=== PATIENT | female | born 1950 | race Caucasian/White ===

== ENCOUNTER → 2016-09-19 | Outpatient (CLI) | payer MEDICARE, MEDICAID | LOC: RAD 09:18 | PROVIDERS: ATTEND Physician Assistant | DX: R10.10 Upper abdominal pain, unspecified (principal) | CPT/HCPCS: 74177 ==

== ENCOUNTER 2016-11-11 10:53 | Day surgery (SDC) | payer MEDICARE, MEDICAID ==
[~2016-11-11 10:53] MED LIST: PROPOFOL INJ 200 MG/20 ML VIAL IV ONE
--- NOTE | 2016-11-11 13:29 | Operative Report ---
Operative Report DATE OF SURGERY: 11/11/16 Operative Report: The risks, benefits and alternatives of the procedure including risks of bleeding, perforation requiring surgery are explained to the patient detail and informed consent was obtained. The patient was taken back to the endoscopy suite and placed in the left, lateral decubital position. Timeout was called. Propofol medications administered. A rectal examination was done which did not reveal any masses, tears or fissures. An Olympus videoscope was inserted into the patient's rectum. The scope was then gradually advanced all the way to the cecum. The cecum was identified by the usual anatomical landmarks including the ileocecal valve as well as the appendiceal office. Photodocumentation was obtained. The scope was then sequentially pulled back via the rest segments of the colon including the ascending colon, hepatic flexure, transverse colon, splenic flexure, descending colon and finding to the rectosigmoid portions of the colon. Retroflexion maneuver was performed. The risks benefits and alternatives of the procedure explained to the patient in detail and informed consent is obtained. A GIF Olympus video scope was inserted into the patient's mouth and hypopharynx the esophagus is identified intubated and insufflated, the scope was then advanced through the esophagus stomach and duodenum, retroflexion maneuver is done, the esophagus stomach and first and second portions of the duodenum examined PREOPERATIVE DIAGNOSIS: Colorectal cancer screening. Epigastric pain rule out peptic ulcer disease POSTOPERATIVE DIAGNOSIS: There is a cecal polyp that was removed via snare polypectomy. An Endo Clip was placed to reduce the risk of post polypectomy bleeding. There is a hepatic flexure polyp that was removed via snare polypectomy and retrieved. There is a sigmoid polyp on a large stalk, high risk of removal with snare polypectomy. Status post tattoo with [place] ink along with biopsy. Will need surgical referral. Rectal polyp 2 removed via snare polypectomy and retrieved. Diverticulosis moderate in the sigmoid. Internal and external hemorrhoids. Gastritis, duodenitis, esophagitis status post biopsy rule out Helicobacter pylori OPERATION: Colonoscopy with snare polypectomy. Colonoscopy with biopsy. Colonoscopy with submucosal injection of [place] ink. EGD with biopsy SURGEON: IRVIN DIAMOND ANESTHESIA: LMAC TISSUE REMOVED OR ALTERED: The polyp in the cecum was not retrieved, all of the polyps are retrieved. Biopsies of the stomach to rule out for Helicobacter pylori COMPLICATIONS: None. ESTIMATED BLOOD LOSS: None. INTRAOPERATIVE FINDINGS: As described above. PROCEDURE: Patient tolerated procedure well. No immediate postprocedure complications are noted. Patient discharged in good condition. Discharge date 11/11/2016. Discharge diet: Regular. Discharge activity: Regular. Prolonged procedure time exceeding 1 hour. We will wait on biopsies. Surveillance in 1 year. 2-3 week follow-up to discuss findings. Patient is instructed to call the office or proceed to the emergency room should there be any further problems or questions. We will need surgical referral for limited sigmoid resection given size of the polyp and high risk of post polypectomy bleeding.
[2016-11-11] MEDS ORDERED: SIMETHICONE 80 MG TAB.CHEW ONE (13:36)
[2016-11-11 13:51] VITALS: BP 158/81
== END 2016-11-11 13:55 | disposition home or self-care (01) ==
LOC: END 10:53
PROVIDERS: ATTEND Internal Medicine Gastroenterology
PROC: 3E0H8GC Introduction of Other Therapeutic Substance into Lower GI, Via Natural or Artificial Opening Endoscopic (ICD-10-PCS; principal; 2016-11-11 14:00)
PROC: 0DB68ZX Excision of Stomach, Via Natural or Artificial Opening Endoscopic, Diagnostic (ICD-10-PCS; 2016-11-11 14:00)
PROC: 0DBN8ZX Excision of Sigmoid Colon, Via Natural or Artificial Opening Endoscopic, Diagnostic (ICD-10-PCS; 2016-11-11 14:00)
PROC: 0DBP8ZX Excision of Rectum, Via Natural or Artificial Opening Endoscopic, Diagnostic (ICD-10-PCS; 2016-11-11 14:00)
DX: D12.0 Benign neoplasm of cecum (principal); D12.7 Benign neoplasm of rectosigmoid junction; K63.5 Polyp of colon; K57.30 Diverticulosis of large intestine without perforation or abscess without bleeding; K64.8 Other hemorrhoids; K64.4 Residual hemorrhoidal skin tags; E78.4 Other hyperlipidemia; I10 Essential (primary) hypertension; E11.9 Type 2 diabetes mellitus without complications; Z79.1 Long term (current) use of non-steroidal anti-inflammatories (NSAID); Z79.899 Other long term (current) drug therapy; Z79.51 Long term (current) use of inhaled steroids
CPT/HCPCS: 43239; 45380; 45385; 45381; 82962; 88342 ×2; 88305 ×2; A9270; J2704; 740

== ENCOUNTER → 2017-12-12 | Outpatient (CLI) | payer MEDICARE, MEDICAID ==
--- NOTE | 2017-12-12 13:26 | RADIOLOGY REPORT (SQ) ---
EXAM DESCRIPTION: CHEST 2 VIEWS COMPLETED DATE/TIME: 12/12/2017 1:03 pm REASON FOR STUDY: SOB (R06.02) E11.9 TYPE 2 DIABETES MELLITUS WITHOUT COMPLICATIONS R60.0 LOCALIZE D EDEMA COMPARISON: None. NUMBER OF VIEWS: Two view. TECHNIQUE: Frontal and lateral radiographic views of the chest acquired. LIMITATIONS: None. FINDINGS: LUNGS AND PLEURA: No opacities, masses or pneumothorax. No pleural effusion. MEDIASTINUM AND HILAR STRUCTURES: No masses. No contour abnormalities. HEART AND VASCULAR STRUCTURES: Heart enlarged without failure. Aorta normal for age. BONES: No acute findings. HARDWARE: None in the chest. OTHER: No other significant finding. IMPRESSION: CARDIAC ENLARGEMENT WITHOUT FAILURE. TECHNICAL DOCUMENTATION: JOB ID: [id number] [employer]- All Rights Reserved Reading location - IP/workstation name: [email or web address]
--- NOTE | 2017-12-12 14:21 | RADIOLOGY REPORT (SQ) ---
EXAM DESCRIPTION: VENOUS BILATERAL LOWER COMPLETED DATE/TIME: 12/12/2017 1:59 pm REASON FOR STUDY: BLE EDEMA E11.9 TYPE 2 DIABETES MELLITUS WITHOUT COMPLICATIONS R60.0 LOCALIZED E PAMELA COMPARISON: None. TECHNIQUE: Dynamic and static bullock scale and color images acquired of both lower extremity venous sy stems. Selected spectral images acquired with additional compression and augmentation maneuvers. Imag es stored on PACS. LIMITATIONS: None. FINDINGS: RIGHT LEG COMMON FEMORAL AND FEMORAL: Normal phasicity, compression and augmentation. No visualized echogenic m aterial on bullock scale. No defects on color images. POPLITEAL: Normal compression and augmentation. No visualized echogenic material on bullock scale. No de fects on color images. CALF VESSELS: Normal compression and augmentation. No visualized echogenic material on bullock scale. No defects on color image. GSV AND SSV: Normal compression. No visualized echogenic material on bullock scale. No defects on color images. ANY DEEP VENOUS INSUFFICIENCY: Not evaluated. ANY EVIDENCE OF POPLITEAL CYST: No. OTHER: No other significant finding. LEFT LEG COMMON FEMORAL AND FEMORAL: Normal phasicity, compression and augmentation. No visualized echogenic m aterial on bullock scale. No defects on color images. POPLITEAL: Normal compression and augmentation. No visualized echogenic material on bullock scale. No de fects on color images. CALF VESSELS: Normal compression and augmentation. No visualized echogenic material on bullock scale. No defects on color images. GSV AND SSV: Normal compression. No visualized echogenic material on bullock scale. No defects on color images. ANY DEEP VENOUS INSUFFICIENCY: Not evaluated. ANY EVIDENCE POPLITEAL CYST: No. OTHER: No other significant finding. IMPRESSION: NO EVIDENCE DVT OR SVT IN EITHER LEG. TECHNICAL DOCUMENTATION: JOB ID: [id number] [employer]- All Rights Reserved Reading location - IP/workstation name: [email or web address]
== END ==
LOC: SP 12:52
PROVIDERS: ATTEND Physician Assistant
DX: R60.0 Localized edema (principal); R06.02 Shortness of breath; E11.9 Type 2 diabetes mellitus without complications; I51.7 Cardiomegaly
CPT/HCPCS: 71046; 93970

== ENCOUNTER 2018-01-16 09:06 | Day surgery (SDC) | payer MEDICARE, MEDICAID ==
[2018-01-16] MEDS ORDERED: ALBUTEROL SULFATE 0.083% NEB 2.5 MG/3 ML AMPUL NEB PRN (09:24)
[2018-01-16 10:34] LABS: ANION GAP 12 (5-19); BLOOD UREA NITROGEN 24 mg/dL (7-20); CALCIUM 9.5 mg/dL (8.4-10.2); CARBON DIOXIDE 23 mmol/L (22-30); CHLORIDE 111 mmol/L (98-107); GLUCOSE 88 mg/dL (75-110); POTASSIUM 3.7 mmol/L (3.6-5.0); SODIUM 145.7 mmol/L (137-145)
[2018-01-16] MEDS ORDERED: PROPOFOL INJ 200 MG/20 ML VIAL IV ONE (10:41)
[2018-01-16] MEDS ORDERED: MIDAZOLAM 2 MG/2 ML INJ ONE (10:41)
[2018-01-16] MEDS ORDERED: PROMETHAZINE HCL INJ 25 MG/1 ML VIAL IV PRN ×2 (11:05)
[2018-01-16] MEDS ORDERED: MEPERIDINE HCL/PF INJ 25 MG/1 ML DISP.SYRIN IV PRN (11:05)
[2018-01-16] MEDS ORDERED: FENTANYL CITRATE INJ/PF 100 MCG/2 ML AMPUL IV PRN ×3 (11:05)
[2018-01-16] MEDS ORDERED: DIPHENHYDRAMINE HCL 50 MG/ML VIAL IV PRN (11:05)
--- NOTE | 2018-01-16 12:18 | Operative Report ---
Operative Report DATE OF SURGERY: 01/16/18 Operative Report: The risks, benefits and alternatives of the procedure including risk of bleeding , perforation requiring surgery are explained to the patient in detail and informed consent was obtained. Patient is brought back to the operating room and placed in the left, lateral decubital position. Timeout was called. Propofol medication is administered. A rectal examination is done which did not reveal any masses, tears or fissures. The Olympus videoscope was inserted into the patient's rectum. The scope was then carefully advanced all the way to the cecum. There was some difficulty going around the sigmoid loop. The cecum was identified by the usual anatomical landmarks including the ileocecal valve as well as appendiceal office. Photodocumentation is obtained. The scope was then sequentially pulled back via the rest segments of the colon including the ascending colon, hepatic flexure, transverse colon, splenic flexure, descending colon and finding to the rectosigmoid portions of the colon. Retroflexion maneuvers performed. The risks benefits and alternatives of the procedure explained to the patient in detail and informed consent is obtained.A GIF Olympus video scope was inserted into the patient's mouth and hypopharynx ,the esophagus is identified intubated and insufflated, the scope was then advanced through the esophagus stomach and duodenum ,retroflexion maneuver is done, the esophagus stomach and first and second portions of the duodenum examined PREOPERATIVE DIAGNOSIS: Anemia, weight loss. Personal history of polyp POSTOPERATIVE DIAGNOSIS: Gastritis status post biopsy rule out Helicobacter pylori. Sigmoid diverticulosis. Large base of a sigmoid polyp status post tattooing with 1 cc of [place] ink. 2 other small pedunculated polyps removed via snare polypectomy and retrieved. Internal hemorrhoids OPERATION: Colonoscopy with snare polypectomy. Colonoscopy with submucosal injection. EGD with biopsy SURGEON: IRVIN DIAMOND ANESTHESIA: LMAC TISSUE REMOVED OR ALTERED: As noted above. COMPLICATIONS: None. ESTIMATED BLOOD LOSS: None. INTRAOPERATIVE FINDINGS: As noted above. PROCEDURE: Patient tolerated the procedure well. No immediate postprocedure complications are noted. Patient discharged in good condition. Discharge date 01/16/2018. Discharge diet: Regular. Discharge activity: Regular. 2-3 week follow-up to discuss findings. Patient is instructed call the office or proceed to the emergency room should there be any further problems or questions. We will referred to surgery service for potential removal Surveillance colonoscopy 2-3 years after that
[2018-01-16] MEDS ORDERED: ACETAMINOPHEN 325 MG TABLET PO PRN (12:30)
[2018-01-16] MEDS ORDERED: DEXTROSE 5%-1/2 NORMAL SALINE 1,000 ML IV PRN (12:30)
[2018-01-16] MEDS ORDERED: SIMETHICONE 80 MG TAB.CHEW PO PRN (12:30)
[2018-01-16] MEDS ORDERED: PROMETHAZINE HCL INJ 25 MG/1 ML VIAL INJ PRN (12:30)
[2018-01-16 12:58] VITALS: BP 166/76
--- NOTE | 2018-01-16 12:59 | EKG REPORT ---
SEVERITY:- BORDERLINE ECG - SINUS RHYTHM PROBABLE LEFT ATRIAL ABNORMALITY BORDERLINE T ABNORMALITIES, ANT-LAT LEADS : Confirmed by: Norberto Mathur MD 16-Jan-2018 12:58:50
== END 2018-01-16 12:55 | disposition home or self-care (01) ==
LOC: OROUT 09:06
PROVIDERS: ATTEND Internal Medicine Gastroenterology
DX: K29.50 Unspecified chronic gastritis without bleeding (principal); D12.6 Benign neoplasm of colon, unspecified; D12.5 Benign neoplasm of sigmoid colon; K57.30 Diverticulosis of large intestine without perforation or abscess without bleeding; K64.8 Other hemorrhoids; D64.9 Anemia, unspecified; M19.90 Unspecified osteoarthritis, unspecified site; E11.9 Type 2 diabetes mellitus without complications; I10 Essential (primary) hypertension; E78.5 Hyperlipidemia, unspecified; F17.210 Nicotine dependence, cigarettes, uncomplicated; E78.1 Pure hyperglyceridemia; J41.1 Mucopurulent chronic bronchitis; Z86.73 Personal history of transient ischemic attack (TIA), and cerebral infarction without residual deficits; Z79.51 Long term (current) use of inhaled steroids; Z79.899 Other long term (current) drug therapy; Z79.84 Long term (current) use of oral hypoglycemic drugs; Z79.1 Long term (current) use of non-steroidal anti-inflammatories (NSAID)
CPT/HCPCS: 43239; 45385; 45381; 36415; 82962; 80048; 88342 ×2; 88305 ×2; 93005; 93010; J2250; J2704; A9270; 813

== ENCOUNTER → 2018-03-26 | Outpatient (CLI) | payer MEDICARE, MEDICAID ==
--- NOTE | 2018-03-27 10:37 | WOMENS IMAGING REPORT ---
EXAM DESCRIPTION: 3D SCREENING MAMMO BILAT COMPLETED DATE/TIME: 03/26/2018 12:25 pm REASON FOR STUDY: BILATERAL SCREENING MAMMO 3D /Z12.31 Z12.31 ENCNTR SCREEN MAMMOGRAM FOR MALIGNANT NEOPLASM OF BAM COMPARISON: [id number] TECHNIQUE: Standard craniocaudal and mediolateral oblique views of each breast recorded using digita l acquisition and breast tomosynthesis. LIMITATIONS: None. FINDINGS: No masses, calcifications or architectural distortion. No areas of suspicion. Read with the assistance of CAD. .[facility] - R2 Cenova Version 1.3 .[facility] Imaging - R2 Cenova Version 1.3 .[facility] - R2 Cenova Version 2.4 .[facility] [place] - R2 Cenova Version 2.4 .[facility] - R2 Opening Machine Cleaner Version 9.2 IMPRESSION: NORMAL MAMMOGRAM. BIRADS 1. BREAST DENSITY: b. There are scattered areas of fibroglandular density. BIRAD: 1 NEGATIVE RECOMMENDATION: ROUTINE SCREENING COMMENT: The patient has been notified of the results by letter per SA requirements. Additional no tification policies are in place for contacting patient with suspicious or incomplete findings. Quality ID #225: The [employer] recommends an annual screening mammogram for women aged 40 years or over. This facility utilizes a reminder system to ensure that all patients receive reminder letters, and/or direct phone calls for appointments. This includes reminders for routine scr eening mammograms, diagnostic mammograms, or other Breast Imaging Interventions when appropriate. Th is patient will be placed in the appropriate reminder system. The [employer] [employer] (ACR) has developed recommendations for screening MRI of the breast s in certain patient populations, to be used in conjunction with mammography. Breast MRI surveillanc e may be appropriate for women with more than 20% lifetime risk of developing breast cancer as deter mined by genetic testing, significant family history of the disease, or history of mantle radiation f or Hodgkins Disease. ACR Practice Guidelines 2008. DBT Technology DBT is a type of tomographic mammography. With conventional mammography, overlapping breast tissue ma y make lesions difficult to detect, even with good compression. DBT uses an x-ray tube that rotates a round the breast, taking images at different angles. These images are then combined to create thin sl ices of the breast that the radiologist can view as a 3D reconstruction. The [employer] unit can perform full-field digital mammograms (2D imaging); or DBT (3D imaging); or both, in a combination mode that quickly performs both the mammogram and the tomosynthesis scan while the breast is still compressed. PQRS 6045F: Fluoroscopic imaging is not utilized for breast tomosynthesis. TECHNICAL DOCUMENTATION: FINDING NUMBER: (1) ASSESSMENT: (1) JOB ID: [id number] [employer]- All Rights Reserved Reading location - IP/workstation name: [email or web address] [email or web address]
== END ==
LOC: WI 11:45
PROVIDERS: ATTEND Physician Assistant
DX: Z12.31 Encounter for screening mammogram for malignant neoplasm of breast (principal)
CPT/HCPCS: 77063; 77067

== ENCOUNTER → 2018-04-14 | Outpatient (CLI) | payer MEDICARE, MEDICAID ==
--- NOTE | 2018-04-14 11:57 | RADIOLOGY REPORT (SQ) ---
EXAM DESCRIPTION: CT CHEST WITHOUT COMPLETED DATE/TIME: 04/14/2018 11:20 am REASON FOR STUDY: PULMONARY NODULE (R91.1) R91.1 SOLITARY PULMONARY NODULE COMPARISON: Chest x-ray dated 12/12/2017 TECHNIQUE: CT scan performed of the chest without intravenous contrast. Images reviewed with lung, soft tissue and bone windows. Reconstructed coronal and sagittal MPR images reviewed. All images st ored on PACS. All CT scanners at this facility use dose modulation, iterative reconstruction, and/or weight based d osing when appropriate to reduce radiation dose to as low as reasonably achievable (ALARA). [facility]: Dose Right [facility]: CareDose [facility]: Dose Right [facility]: Teradose 4D [facility]: CE Interactive RADIATION DOSE: CT Rad equipment meets quality standard of care and radiation dose reduction techniq ues were employed. CTDIvol: 3.4 mGy. DLP: 125 mGy-cm. mGy. LIMITATIONS: No technical limitations. FINDINGS: LUNGS AND PLEURA: There are mild bilateral emphysematous changes with small subpleural ble bs. No consolidation or effusions. No suspicious pulmonary nodules. Minimal scarring in the left b ase. HILAR AND MEDIASTINAL STRUCTURES: No identified masses or abnormal nodes. No obvious aneurysm. HEART AND VASCULAR STRUCTURES: No aneurysm. No pericardial effusion. UPPER ABDOMEN: No significant findings. Limited exam. THYROID AND OTHER SOFT TISSUES: No masses. No adenopathy. BONES: No significant finding. HARDWARE: None in the chest. OTHER: No other significant findings. IMPRESSION: Mild emphysematous changes. No acute findings in the chest. Specifically no pulmonary nodules are identified. TECHNICAL DOCUMENTATION: JOB ID: [id number] Quality ID # [id number]: Final reports with documentation of one or more dose reduction techniques (e.g., Au tomated exposure control, adjustment of the mA and/or kV according to patient size, use of iterative reconstruction technique) 2010 [employer]- All Rights Reserved Reading location - IP/workstation name: [email or web address]
== END ==
LOC: RAD 10:17
PROVIDERS: ATTEND Internal Medicine Pulmonary Disease
DX: R91.1 Solitary pulmonary nodule (principal)
CPT/HCPCS: 71250

== ENCOUNTER → 2018-07-30 | Outpatient (CLI) | payer MEDICARE, MEDICAID ==
--- NOTE | 2018-07-30 10:45 | RADIOLOGY REPORT (SQ) ---
EXAM DESCRIPTION: CHEST 2 VIEWS COMPLETED DATE/TIME: 07/30/2018 10:34 am REASON FOR STUDY: DYSPNEA ON EXERTION COMPARISON: Check CT dated 04/14/2018. Chest x-ray dated 12/12/2017. EXAM PARAMETERS: NUMBER OF VIEWS: two views TECHNIQUE: Digital Frontal and Lateral radiographic views of the chest acquired. RADIATION DOSE: NA LIMITATIONS: none FINDINGS: LUNGS AND PLEURA: There are new bilateral pleural effusions, right greater than left. Pat elias airspace disease in the lower lobes. No pneumothorax. MEDIASTINUM AND HILAR STRUCTURES: No masses or contour abnormalities. HEART AND VASCULAR STRUCTURES: Borderline cardiomegaly. Mild vascular prominence. BONES: No acute findings. Old right rib fractures. HARDWARE: Clips in the upper abdomen. OTHER: No other significant finding. IMPRESSION: INTERVAL DEVELOPMENT OF BILATERAL PLEURAL EFFUSIONS, RIGHT GREATER THAN LEFT, WITH PATCH Y BASILAR DENSITIES PROBABLY DUE TO ATELECTASIS. BORDERLINE CARDIOMEGALY WITH MILD VASCULAR PROMINEN CE. TECHNICAL DOCUMENTATION: JOB ID: [id number] [employer]- All Rights Reserved Reading location - IP/workstation name: [email or web address]
== END ==
LOC: RAD 10:16
PROVIDERS: ATTEND Physician Assistant
DX: R06.09 Other forms of dyspnea (principal)
CPT/HCPCS: 71046

== ENCOUNTER → 2019-09-15 | Outpatient (CLI) | payer MEDICARE, MEDICAID ==
--- NOTE | 2019-09-15 10:55 | RADIOLOGY REPORT (SQ) ---
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 TECHNIQUE: Post IV contrasted scanning from skull base through lung apices with review of bone, soft tissue and lung windows. Reconstructed coronal and sagittal MPR images reviewed. All images stored on PACS. All CT scanners at this facility use dose modulation, iterative reconstruction, and/or weight based d osing when appropriate to reduce radiation dose to as low as reasonably achievable (ALARA). [facility]: Dose Right [facility]: CareDose [facility]: Dose Right [facility]: Teradose 4D [facility]: MooBella CONTRAST TYPE AND DOSE: contrast/concentration: Isovue 350.00 mg/ml; Total Contrast Delivered: 150.0 ml; Total Saline Delivered: 110.0 ml RENAL FUNCTION: Creatinine 1.4 RADIATION DOSE: . LIMITATIONS: None. FINDINGS: SKULL BASE: Intact. MAJOR SALIVARY GLANDS: No solid or cystic masses. No inflammatory changes. LYMPHADENOPATHY: No pathologically enlarged lymph nodes. MUCOSAL MASSES OR ASYMMETRY: No mucosal masses or asymmetry. LARYNX/CORDS: No abnormal findings. VASCULAR STRUCTURES: Thrombus in the SVC and right internal jugular vein. Small amount of thrombus i n the left subclavian vein. LUNG APICES: Approximately 2.8 x 3.9 cm necrotic level 4R pretracheal node. BONES: Lytic lesion has eroded most of the C3 dorsal spinous process. THYROID: Normal size. No masses. PARANASAL SINUSES: Small amount of fluid in the sphenoid sinuses. OTHER: No other significant finding. IMPRESSION: 1. 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 2. Bone metastasis C3. TECHNICAL DOCUMENTATION: JOB ID: [id number] Quality ID # 436: Final reports with documentation of one or more dose reduction techniques (e.g., Au tomated exposure control, adjustment of the mA and/or kV according to patient size, use of iterative reconstruction technique) 2010 [employer]- All Rights Reserved Reading location - IP/workstation name: [email or web address]-
== END ==
LOC: RAD 09:09
PROVIDERS: ATTEND Physician Assistant
DX: I87.1 Compression of vein (principal); C79.51 Secondary malignant neoplasm of bone
CPT/HCPCS: 70491; 82565

== ENCOUNTER → 2019-09-17 | Outpatient (CLI) | payer MEDICARE, MEDICAID ==
--- NOTE | 2019-09-17 11:29 | RADIOLOGY REPORT (SQ) ---
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 Images reviewed with lung, soft tissue and bone windows. Reconstructed coronal and sagittal MPR and MIP images reviewed. All images stored on PACS. All CT scanners at this facility use dose modulation, iterative reconstruction, and/or weight based d osing when appropriate to reduce radiation dose to as low as reasonably achievable (ALARA). [facility]: Dose Right [facility]: CareDose [facility]: Dose Right [facility]: Teradose 4D [facility]: Singularu CONTRAST TYPE AND DOSE: contrast/concentration: Isovue 350.00 mg/ml; Total Contrast Delivered: 80.0 ml; Total Saline Delivered: 43.0 ml RENAL FUNCTION: Creatinine 1.4 RADIATION DOSE: CT Rad equipment meets quality standard of care and radiation dose reduction techniq ues were employed. CTDIvol: 5.3 mGy. DLP: 196 mGy-cm. . LIMITATIONS: None. FINDINGS: LUNGS AND PLEURA: Right upper lobe 9 mm nodule (series 4, image 38), stable compared to CT dated 09/15/2019 but new since 04/14/2018. Minimal additional ill-defined centrilobular nodular opac ities within the right middle lobe. Upper lobe predominant paraseptal emphysema. No additional airs pace disease. No pleural effusion or pneumothorax. HILAR AND MEDIASTINAL STRUCTURES: Grossly stable extensive right suprahilar and mediastinal irregular soft tissue compared to recent CT neck. For reference there is abnormal right paratracheal soft tis brad measuring approximately 4.1 x 2.9 cm (series 2, image 21). There is associated non opacification of the SVC with prominent opacified chest wall collaterals compatible with SVC occlusion. Known SVC , innominate and right internal jugular clot better delineated on prior neck CT. There is mild mass effect and compression of the right main pulmonary artery. Additional prevascular adenopathy and subc arinal soft tissue, likely adenopathy. HEART AND VASCULAR STRUCTURES: Small pericardial effusion with three-vessel coronary atherosclerosis. Normal heart size. Non opacification of the SVC as above. Questionable small amount of subsegment al pulmonary embolism within the right lower lobe branches (series 2, image 36) HARDWARE: None in the chest. UPPER ABDOMEN: No acute findings. Prominent anterior abdominal wall collaterals compatible with SVC occlusion. Partially evaluated hypodense right renal lesion, possibly cyst but incompletely characte rize. THYROID AND OTHER SOFT TISSUES: Unremarkable thyroid. Enlarged irregular appearing right axillary ly mph node measuring 15 mm in short axis (series 2, image 17). BONES: No acute bony abnormality. Node discrete lytic or blastic osseous lesions. Subacute to chron ic multiple posterolateral right-sided rib fractures. OTHER: No other significant finding. IMPRESSION: 1. 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 There is associated occluded SVC with upper extremity drainage via multiple chest wall collaterals. Known SVC, innominate and right internal jugular clot better delineated on prior neck CT. Question able small amount of subsegmental pulmonary emboli within the right lower lobe branches although exam not optimized for evaluation of pulmonary arteries. 2. Right upper lobe 9 mm pulmonary nodules stable compared to recent neck CT but new since 8. Enlarged irregular right axillary lymph node measuring 15 mm in short axis. Finding suspicious f or additional malignancy. TECHNICAL DOCUMENTATION: JOB ID: [id number] Quality ID # 436: Final reports with documentation of one or more dose reduction techniques (e.g., Au tomated exposure control, adjustment of the mA and/or kV according to patient size, use of iterative reconstruction technique) 2010 [employer]- All Rights Reserved Reading location - IP/workstation name: [email or web address]
== END ==
LOC: RAD 10:05
PROVIDERS: ATTEND Physician Assistant
DX: J98.59 Other diseases of mediastinum, not elsewhere classified (principal); R59.0 Localized enlarged lymph nodes; R91.8 Other nonspecific abnormal finding of lung field
CPT/HCPCS: 71260

== ENCOUNTER 2019-09-27 07:07 | Day surgery (SDC) | payer MEDICARE, MEDICAID ==
[2019-09-27 08:15] LABS: HEMATOCRIT 31.2 % (36.0-47.0); HEMOGLOBIN 11.1 g/dL (12.0-15.5); MEAN CORPUSCULAR HGB CONC 35.5 g/dL (32.0-36.0); MEAN CORPUSCULAR VOLUME 87 fl (80-97); PLATELET COUNT 315 10^3/uL (150-450); RED BLOOD COUNT 3.58 10^6/uL (3.72-5.28); RED CELL DISTRIBUTION WIDTH 15.6 % (11.5-14.0); WHITE BLOOD COUNT 6.9 10^3/uL (4.0-10.5)
[2019-09-27 08:26] LABS: INTERNATIONAL RATION (INR) 1.18; PARTIAL THROMBOPLASTIN TIME 31.6 SEC (23.5-35.8); PROTHROMBIN TIME 15.1 SEC (11.4-15.4)
[2019-09-27 08:36] LABS: BLOOD UREA NITROGEN 26 mg/dL (7-20)
[2019-09-27 12:09] VITALS: BP 119/60
--- NOTE | 2019-09-27 16:51 | RADIOLOGY REPORT (SQ) ---
EXAM DESCRIPTION: U/S BIOPSY SUPERFIC LYMPH NODE IMAGES COMPLETED DATE/TIME: 09/27/2019 10:37 am REASON FOR STUDY: MALIGNANT NEOPLASM OF MIDDLE LOBE, BRONCHUS OR LUNG COMPARISON: CT of the chest with contrast from 09/17/2019. TECHNIQUE: The procedure, risks, benefits, and alternatives were discussed with the patient in the p reprocedural area, and all questions were answered. Informed consent was obtained verbally and in wri ting. The patient was then brought to the ultrasound suite, positioned supine on a gurney, and a time-out w as performed. After that, selected grayscale and color Doppler images of the right axilla were obtai aurelia. Based on review of the images an appropriate access site was selected on the skin to sample an e nlarged 14 x 19 mm lymph node. The area around the selected access site was then prepped and draped with 2% chlorhexidine utilizing standard sterile technique. After that, the access site was infiltrated with 1% lidocaine and a skin incision was made with a #11 blade. A 17 gauge coaxial needle was then advanced through the skin inc ision and into the enlarged lymph node utilizing sonographic guidance. After that, the inner stylet o f the coaxial needle was removed and 4 18 gauge core samples were obtained of the mass - the samples were collected and submitted to cytopathology in formalin. The coaxial needle was then removed and selected grayscale and color Doppler images of the mass were repeated and reviewed ; the images demonstrated no acute biopsy-related complication. The patient was then repositioned on the gurney and selected grayscale and color Doppler images of th e left axilla were obtained. Based on review of the images an appropriate access site was selected on the skin to sample the palpable heterogeneous necrotic mass. The area around the selected access sit e was then prepped and draped with 2% chlorhexidine utilizing standard sterile technique. After that , the access site was infiltrated with 1% lidocaine and a skin incision was made with a #11 blade. A 17 gauge coaxial needle was then advanced through the skin incision and into the necrotic mass utiliz ing sonographic guidance and 5 mL of thick bloody fluid was aspirate. After that, the inner stylet of the coaxial needle was removed and 4 18 gauge core samples were obtained of the necrotic mass - the samples were collected and submitted to cytopathology in formalin. The patient tolerated the procedure well with local anesthesia. At the end of the procedure the patient's condition was unchanged from the preprocedural baseline. Documentation of draa-ki-yfuj time the performing proceduralist spent monitoring the patient: 15 alli eduardo. LIMITATIONS: None. FINDINGS: Expansile echogenic thrombus within the right axillary vein and subcutaneous edema around the necrotic mass in the left axilla. IMPRESSION: 1. Successful ultrasound-guided biopsy of an enlarged right axillary lymph node as detai led above. 2. Successful ultrasound-guided biopsy and aspiration of the necrotic mass in the left axilla as det dayton above. TECHNICAL DOCUMENTATION: JOB ID: [id number] 2010 [employer]- All Rights Reserved Reading location - IP/workstation name: [email or web address]
== END 2019-09-27 11:35 | disposition home or self-care (01) ==
LOC: RAD 07:07
PROVIDERS: ATTEND Internal Medicine
DX: C77.3 Secondary and unspecified malignant neoplasm of axilla and upper limb lymph nodes (principal); C34.2 Malignant neoplasm of middle lobe, bronchus or lung; Z79.01 Long term (current) use of anticoagulants; E11.9 Type 2 diabetes mellitus without complications; E78.5 Hyperlipidemia, unspecified; I10 Essential (primary) hypertension; Z79.51 Long term (current) use of inhaled steroids; F17.210 Nicotine dependence, cigarettes, uncomplicated; Z79.899 Other long term (current) drug therapy
CPT/HCPCS: 36415; 38505; 82565; 84520; 85027; 85610; 85730; 87070; 87075; 87205; 88305; 88341; 88342

== ENCOUNTER → 2019-10-05 | Outpatient (CLI) | payer MEDICARE, MEDICAID ==
--- NOTE | 2019-10-06 11:06 | RADIOLOGY REPORT (SQ) ---
EXAM DESCRIPTION: PET CT SKULL/THIGH IMAGES COMPLETED DATE/TIME: 10/05/2019 12:55 pm REASON FOR STUDY: (C34.2)MALIGNANT NEOPLASM OF MIDDLE LOBE, BRONCHUS OR LUNG C34.2 MALIGNANT NEOPLA SM OF MIDDLE LOBE, BRONCHUS OR LUNG COMPARISON: CT chest dated 09/17/2019 RADIONUCLIDE AND DOSE: 10.06 mCi F18 FDG The route of agent administration: Intravenous FASTING BLOOD SUGAR: 95 mg/dl CONTRAST TYPE AND DOSE: No CT contrast given. TECHNIQUE: Blood glucose level was verified. Above dose of FDG was injected intravenously. 2-D seg mented attenuation correction images were obtained from the base of the skull to the midthighs. Nonc ontrast CT images were obtained for attenuation correction and fusion with emission images. CT image s were performed without oral or intravenous contrast and are not sensitive for parenchymal lesions. A series of overlapping emission PET images were obtained. Images reviewed and manipulated at [facility] work station by the radiologist. Images stored on PACS. LIMITATIONS: None. FINDINGS: HEAD AND NECK: There is increased metabolic activity in the cervical spine. There is a la rge soft tissue mass at the level of the C3 spinous process. There is bony destruction. SUV is joby ured at 7.3 consistent with neoplasm. CHEST: Multiple areas of abnormal activity in the mediastinum consistent with pathologic adenopathy. Most intense activity is on the right with there is a 3.2 cm soft tissue mass. Activity is decrease d centrally consistent with necrosis. SUV is greater than 6 consistent with neoplasm. There is a 3. 1 cm soft tissue mass in the left axilla a contains a small amount of air. SUV is greater than 4 con sistent with neoplasm. There is central decreased activity most likely secondary to necrosis. There are small abnormal nodes in the posterior mediastinum. ABDOMEN AND PELVIS: Abnormal uptake in the right adrenal gland. SUV is greater than 4 consistent wit h metastatic disease. PROXIMAL LOWER EXTREMITIES: No abnormal soft tissue uptake. BONES: Metastatic disease in the proximal right femur and left ilium. ADDITIONAL CT FINDINGS: There is diffuse subcutaneous edema. There is a small pericardial effusion. OTHER: There are small subcutaneous soft tissue nodules. Upper posterior right chest wall lesion is best demonstrated on slice [address] images. SUV is 2.9. 2nd soft tissue nodule is demonstrated on s lice 110. SUV is greater than 4.3. There is a small soft tissue nodule in the right upper arm as we ll. IMPRESSION: Abnormal uptake in the right-sided mediastinal mass with extensive metastatic disease as described. TECHNICAL DOCUMENTATION: JOB ID: [id number] 2010 [employer]- All Rights Reserved Reading location - IP/workstation name: [email or web address]
== END ==
LOC: RAD 10:27
PROVIDERS: ATTEND Internal Medicine
DX: C34.2 Malignant neoplasm of middle lobe, bronchus or lung (principal)
CPT/HCPCS: 78815; A9552

== ENCOUNTER 2019-10-12 07:03 | Observation (INO) | payer MEDICARE, MEDICAID ==
[~2019-10-12 07:03] MED LIST changes: +FENTANYL CITRATE INJ/PF 100 MCG/2 ML AMPUL ONE; +KETAMINE HCL INJ 500 MG/10 ML VIAL ONE; -MAGNESIUM SULFATE/D5W 1 GM/100 ML RTUPB IV SCH; +MIDAZOLAM 2 MG/2 ML INJ ONE; +ONDANSETRON HCL INJ/PF 4 MG/2 ML SDV ONE; +PROPOFOL INJ 200 MG/20 ML VIAL IV ONE
--- NOTE | 2019-10-12 09:04 | RADIOLOGY REPORT (SQ) ---
EXAM DESCRIPTION: MRI HEAD COMBO IMAGES COMPLETED DATE/TIME: 10/12/2019 8:39 am REASON FOR STUDY: LUNG CANCER (C34.2) C34.2 MALIGNANT NEOPLASM OF MIDDLE LOBE, BRONCHUS OR LUNG COMPARISON: PET-CT 10/05/2027 CT soft tissue neck 09/15/2019 TECHNIQUE: Multiplanar imaging includes noncontrasted T1, T2, FLAIR, diffusion with ADC map and post gadolinium contrast T1 sequences. Images stored on PACS. CONTRAST TYPE AND DOSE: 10 mL Dotarem. RENAL FUNCTION: Not indicated. ACR Type II contrast agent associated with few, if any, unconfounded cases of NSF LIMITATIONS: None. FINDINGS: ANATOMY: No developmental anomalies. Normal vascular flow voids. Pituitary fossa normal. CSF SPACES: Normal in size and contour. No hemorrhage. CEREBRUM: Minimal spotty bifrontal and biparietal chronic small vessel ischemic change in the hemisph zohaib white matter. No enhancing brain parenchymal masses worrisome for metastatic disease. No intracranial hemorrhage, mass effect, or midline shift. POSTERIOR FOSSA: No signal alteration. No hemorrhage. No edema, masses, or mass effect. Internal roxi tory canals, cerebellopontine angles, mastoids normal. No enhancing lesions. No abnormal enhancement post contrast. DIFFUSION IMAGING: Negative for acute or subacute infarction. ORBITS: No masses. Globes post cataract surgery PARANASAL SINUSES: No fluid levels. Mucosa normal. OTHER: 16 mm diameter left temporal calvarial metastatic lesion, best shown on axial image 108, sagit kaylin image 39, coronal image 28. IMPRESSION: 16 mm left temporal calvarial metastatic lesion. No brain parenchymal enhancing lesions worrisome for metastatic disease EVIDENCE OF ACUTE STROKE: NO. TECHNICAL DOCUMENTATION: JOB ID: [id number] [employer]- All Rights Reserved Reading location - IP/workstation name: [email or web address]
[2019-10-12] MEDS ORDERED: RINGERS SOLUTION,LACTATED 1,000 ML IV PRN (10:09)
[2019-10-12] MEDS ORDERED: CEFAZOLIN 1 GM/D5W RTU 1 GM/50 ML RTUPB IV PRN (10:11)
[2019-10-12] MEDS ORDERED: ACETAMINOPHEN 325 MG TABLET PO PRN ×2 (10:12→14:30)
[2019-10-12 11:31] LABS: ABSOLUTE BASOPHILS # (AUTO) 0.1 10^3/uL (0.0-0.2); ABSOLUTE EOSINOPHILS # (AUTO) 0.1 10^3/uL (0.0-0.6); ABSOLUTE MONOCYTES (AUTO) 0.3 10^3/uL (0.1-1.4); ABSOLUTE NEUT (AUTO) 5.8 10^3/uL (1.7-8.2); BASOPHILS % (AUTO) 1.3 % (0-2); EOSINOPHILS % (AUTO) 1.4 % (0-6); HEMOGLOBIN 10.7 g/dL (12.0-15.5); LYMPHOCYTES % (AUTO) 13.1 % (13-45); MEAN CORPUSCULAR HEMOGLOBIN 30.6 pg (27.0-33.4); MEAN CORPUSCULAR HGB CONC 34.4 g/dL (32.0-36.0); MEAN CORPUSCULAR VOLUME 89 fl (80-97); MONOCYTES % (AUTO) 4.6 % (3-13); PLATELET COUNT 326 10^3/uL (150-450); RED BLOOD COUNT 3.48 10^6/uL (3.72-5.28); RED CELL DISTRIBUTION WIDTH 15.7 % (11.5-14.0); SEGMENTED NEUTROPHILS % (AUTO) 79.6 % (42-78); TOTAL CELLS COUNTED % (AUTO) 100 %; WHITE BLOOD COUNT 7.3 10^3/uL (4.0-10.5)
[2019-10-12] MEDS ORDERED: LIDOCAINE 1%/EPINEPHRINE INJ 20 ML VIAL ONE (11:46)
[2019-10-12] MEDS ORDERED: CEFAZOLIN 1 GM/D5W RTU 1 GM/50 ML RTUPB IV ONE (11:50)
[2019-10-12] MEDS ORDERED: DIPHENHYDRAMINE HCL 50 MG/ML VIAL IV PRN (12:59)
[2019-10-12] MEDS ORDERED: MEPERIDINE HCL/PF INJ 25 MG/1 ML DISP.SYRIN IV PRN (12:59)
[2019-10-12] MEDS ORDERED: PROMETHAZINE HCL INJ 25 MG/1 ML VIAL IV PRN ×2 (12:59)
[2019-10-12] MEDS ORDERED: FENTANYL CITRATE INJ/PF 100 MCG/2 ML AMPUL IV PRN ×3 (12:59)
--- NOTE | 2019-10-12 13:17 | Discharge Summary ---
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 Take Tylenol or Motrin as needed pain Referrals: JOSE ALBERTO APPLE PA-C [Primary Care Provider] - Discharge Diet: As Tolerated Discharge Activity: Activity As Tolerated Report the Following to Your Physician Immediately: Shortness of Breath, Increase in Pain, Fever over 101 Degrees
[2019-10-12] MEDS ORDERED: ESMOLOL HCL INJ/PF 100 MG/10 ML SDV IV ONE (13:28)
--- NOTE | 2019-10-12 13:32 | Operative Report ---
Operative Report DATE OF SURGERY: 10/12/19 PREOPERATIVE DIAGNOSIS: 1. Metastatic small cell carcinoma of the lung. 2. C OPD. 3. Active smoker. 4. Venous thrombosis of the right internal jugular vein, and superior vena cava POSTOPERATIVE DIAGNOSIS: Same with occlusion of the superior vena cava OPERATION: 1. Ultrasound directed venous access left internal jugular vein. 2. Intraoperative venography with interpretation using fluoroscopy. 3. Placement of left subclavian single-chamber Ukvvdy-a-Pzva catheter SURGEON: MADELEINE GODOY ANESTHESIA: LMAC TISSUE REMOVED OR ALTERED: See below COMPLICATIONS: none ESTIMATED BLOOD LOSS: 40 cc INTRAOPERATIVE FINDINGS: See below PROCEDURE: Patient was seen in the preop holding area, then taken to the main operating where LMAC anesthesia was induced uneventfully. The neck was scanned by Dr. Godoy with a variable frequency linear resendiz sducer. Findings were significant for right IJ thrombus, near occlusive. Left IJ patent. I conferred with my colleague, Dr. Geovany Berry, who agreed with my intention to place a left IJ catheter. Of note patient is a CT scan of the neck and chest showed evidence of thrombus in the superior vena cava, with possible occlusion. Both sides of the neck and chest wall prepped and draped in sterile fashion. Surgical timeout was conducted. The left neck was anesthetized 1% plain lidocaine. A micro wire were threaded into the left internal jugular vein. Unfortunately the wire would not advance past the brachiocephalic vein. I placed a 5 Palestinian introducer sheath and dilator over the guidewire, then shot full-strength contrast venogram through the mini introducer. This revealed occlusion of the superior vena cava with auxiliary drainage placed through the Azygos system. In light of the patient's metastatic disease and need for port, despite the findings of deep venous thrombosis extending into the superior vena cava and occlusion, I felt that some venous access would potentially benefit the patient. Therefore we proceeded with port placement. A suitable site for placement of p ort was chosen the left chest wall. Skin was anesthetized 1% plain lidocaine. A 3 cm incision was made over the chest wall, with the immediate entry into multiple dilated veins consistent with chest wall varicosities likely due to the chronically obstructed superior vena cava. These veins were ligated with 3-0 Vicryl suture. A subclavian port pocket was developed with electrocautery blunt dissection. A 8 Palestinian catheter was then trimmed to a length of approximately 10 cm, tunnel between the 2 incisions that being the subclavian incision and the left IJ access site. The catheter was attached to the port with the plastic ring of the port tucked into the left subclavian pocket uneventfully. Under fluoroscopic guidance, we threaded a conventional 0.030 guidewire into the left IJ, and remove the micro-introducer sheath. I then threaded the 9 Palestinian dilator and introducer over the guidewire and removed the introducer and guidewire. I threaded the free catheter fragment into the strip away sheath, remove the strip away sheath, leaving the catheter with its tip in the innominate vein as intended. There was no kinking of the catheter at the neck. I aspirated and flushed the Ongezv-l-Fppt chamber with heparinized saline. I felt that we had established the access for this unfortunate patient with multiple complicated problems. Stool showed no evidence of hemorrhage in the neck was dry. Sponge and needle counts are correct. All wounds closed with 3-0 Vicryl benzoin and Steri-Strips. Patient was taken to the recovery room in stable condition. Recovering the patient underwent a chest x-ray which showed no evidence of pneumothorax, and catheter to be in the same position it was left in prior to operating room departure. Plan: 1. Discharge patient home from hospital per ambulatory protocol 2. I did speak with Dr. allison pederson, patient's oncologist, about the above findings and the need to start the patient on anticoagulation. 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
--- NOTE | 2019-10-12 13:41 | RADIOLOGY REPORT (SQ) ---
EXAM DESCRIPTION: CHEST SINGLE VIEW IMAGES COMPLETED DATE/TIME: 10/12/2019 1:27 pm REASON FOR STUDY: Status post left neck port placement COMPARISON: PA and lateral views of the chest from 07/30/2018. EXAM PARAMETERS: NUMBER OF VIEWS: One view. TECHNIQUE: An AP view of the chest was obtained. RADIATION DOSE: NA LIMITATIONS: None. FINDINGS: LUNGS AND PLEURA: No consolidation, pleural effusion or pneumothorax. MEDIASTINUM AND HILAR STRUCTURES: No mediastinal or hilar contour abnormality. HEART AND VASCULAR STRUCTURES: The cardiac silhouette is enlarged. BONES: Chronic fractures of the right 6th and 7th ribs. HARDWARE: Status post placement of a left IJ approach single-lumen port ; the tip of the catheter pro jects within the left brachiocephalic vein. OTHER: No other finding. IMPRESSION: Status post placement of a left IJ approach single-lumen port. The tip of the catheter projects within the left brachiocephalic vein. There is no postprocedural pneumothorax. TECHNICAL DOCUMENTATION: JOB ID: [id number] 2010 [employer]- All Rights Reserved Reading location - IP/workstation name: [email or web address]
[2019-10-12 14:30] LABS: ABSOLUTE BASOPHILS # (AUTO) 0.1 10^3/uL (0.0-0.2); ABSOLUTE EOSINOPHILS # (AUTO) 0.1 10^3/uL (0.0-0.6); ABSOLUTE LYMPHOCYTES (AUTO) 0.8 10^3/uL (0.5-4.7); ABSOLUTE MONOCYTES (AUTO) 0.4 10^3/uL (0.1-1.4); BASOPHILS % (AUTO) 0.8 % (0-2); EOSINOPHILS % (AUTO) 0.8 % (0-6); HEMATOCRIT 31.3 % (36.0-47.0); HEMOGLOBIN 10.7 g/dL (12.0-15.5); MEAN CORPUSCULAR HEMOGLOBIN 30.4 pg (27.0-33.4); MEAN CORPUSCULAR HGB CONC 34.3 g/dL (32.0-36.0); MEAN CORPUSCULAR VOLUME 89 fl (80-97); PLATELET COUNT 334 10^3/uL (150-450); RED BLOOD COUNT 3.52 10^6/uL (3.72-5.28); RED CELL DISTRIBUTION WIDTH 15.7 % (11.5-14.0); SEGMENTED NEUTROPHILS % (AUTO) 82.4 % (42-78); TOTAL CELLS COUNTED % (AUTO) 100 %; WHITE BLOOD COUNT 7.2 10^3/uL (4.0-10.5)
[2019-10-12] MEDS ORDERED: ONDANSETRON 4 MG TAB.RAPDIS PO PRN (14:30)
[2019-10-12] MEDS ORDERED: MAG HYDROX/AL HYDROX/SIMETH SUSP 30 ML UDCUP PO PRN (14:30)
[2019-10-12] MEDS ORDERED: ONDANSETRON HCL INJ/PF 4 MG/2 ML SDV IV PRN (14:30)
[2019-10-12] MEDS ORDERED: DEXTROSE 50%-WATER 25 GM/50 ML DISP.SYRIN IV PRN ×2 (14:45)
[2019-10-12] MEDS ORDERED: GLUCAGON,HUMAN RECOMB 1 MG INJ IM PRN (14:45)
[2019-10-12] MEDS ORDERED: DEXTROSE 40% GEL 15 GM TUBE PO PRN ×2 (14:45)
[2019-10-12 14:59] LABS: ALBUMIN 2.8 g/dL (3.5-5.0); ALKALINE PHOSPHATASE 78 U/L (38-126); ASPARTATE AMINO TRANSFERASE 22 U/L (14-36); BILIRUBIN,DIRECT 0.4 mg/dL (0.0-0.4); BILIRUBIN,TOTAL 0.7 mg/dL (0.2-1.3); BLOOD UREA NITROGEN 23 mg/dL (7-20); CALCIUM 8.9 mg/dL (8.4-10.2); GLUCOSE 90 mg/dL (75-110); POTASSIUM 3.8 mmol/L (3.6-5.0); TOTAL PROTEIN 5.6 g/dL (6.3-8.2)
[2019-10-12 15:05] LABS: ANION GAP 6 (5-19); CARBON DIOXIDE 27 mmol/L (22-30); CHLORIDE 102 mmol/L (98-107)
[2019-10-12] MEDS ORDERED: MAGNESIUM SULFATE/D5W 1 GM/100 ML RTUPB IV ONE ×2 (15:18→16:54)
[2019-10-12] MEDS ORDERED: METOPROLOL SUCCINATE 25 MG TAB.SR.24H PO ONE (15:26)
--- NOTE | 2019-10-12 18:18 | EKG REPORT ---
SEVERITY:- ABNORMAL ECG - SINUS RHYTHM LOW VOLTAGE THROUGHOUT BORDERLINE R WAVE PROGRESSION, ANTERIOR LEADS NONSPECIFIC T ABNORMALITIES, LATERAL LEADS : Confirmed by: Norberto Mathur MD 12-Oct-2019 18:17:46
--- NOTE | 2019-10-12 18:19 | EKG REPORT ---
SEVERITY:- ABNORMAL ECG - ATRIAL FIBRILLATION WITH RAPID V-RATE LOW VOLTAGE THROUGHOUT REPOLARIZATION ABNORMALITY, PROB RATE RELATED : Confirmed by: Norberto Mathur MD 12-Oct-2019 18:18:13
[2019-10-12] MEDS ORDERED: LEVOTHYROXINE SODIUM 0.05 MG TABLET PO ONE (19:30)
[2019-10-12] MEDS: INSULIN LISPRO 100 UNIT/ML 3 ML VIAL SUBCUT SCH ×2 (22:48→22:50)
[2019-10-12] MEDS: METOPROLOL SUCCINATE 25 MG TAB.SR.24H PO SCH ×2 (22:48→23:22)
[2019-10-12] MEDS: RIVAROXABAN 15 MG TABLET PO SCH (22:49)
[2019-10-12] MEDS: MAGNESIUM SULFATE/D5W 1 GM/100 ML RTUPB IV SCH (22:49)
[2019-10-12] MEDS: SIMVASTATIN 40 MG TABLET PO SCH (23:22)
[2019-10-12] MEDS: FAMOTIDINE 20 MG TABLET PO SCH (23:22)
[2019-10-13 07:18] LABS: ANION GAP 8 (5-19); BLOOD UREA NITROGEN 21 mg/dL (7-20); CALCIUM 9.2 mg/dL (8.4-10.2); CARBON DIOXIDE 22 mmol/L (22-30); CHLORIDE 104 mmol/L (98-107); POTASSIUM 4.1 mmol/L (3.6-5.0)
[2019-10-13 07:21] LABS: GLUCOSE 68 mg/dL (75-110)
[2019-10-13 07:26] LABS: FREE T3 4.21 pg/mL (2.77-5.27); FREE T4 (FREE THYROXINE) 0.97 ng/dL (0.78-2.19)
[2019-10-13] MEDS: INSULIN LISPRO 100 UNIT/ML 3 ML VIAL SUBCUT SCH ×4 (07:53→22:23)
--- NOTE | 2019-10-13 08:38 | PDOC CONSULTATION ---
Consultation Consult Date: 10/13/19 Attending physician:: REMINGTON SARMIENTO Provider Consulted: DARLINE SOLIZ Consult reason:: Patient with stage IV lung cancer here with A. fib port placement History of Present Illness Admission Date/PCP: JOSE ALBERTO APPLE PA-C Patient complains of: Weakness, tachycardia History of Present Illness: PABLO QUINONES is a 68 year old female with known history of stage IV lung cancer with primary lung lesion as well as bilateral axillary adenopathy, biopsy-proven to be poorly differentiated non-small cell lung cancer, patient was planned for port placement which happened yesterday, unfortunately in recovery patient had rapid A. fib, hypotension and was admitted for observation and treatment of this. Of note, TSH was elevated. Magnesium was low. This is being addressed by the hospitalist team currently. Past Medical History Cardiac Medical History: Reports: Hypertension - medication Denies: Coronary Artery Disease, Myocardial Infarction Pulmonary Medical History: Denies: Asthma, Bronchitis, Chronic Obstructive Pulmonary Disease (COPD), Pneumonia Neurological Medical History: Denies: Seizures Malignancy Medical History: Reports: Lung Cancer GI Medical History: Denies: Hepatitis, Hiatal Hernia Musculoskeltal Medical History: Reports: Arthritis Psychiatric Medical History: Denies: Depression Hematology: Reports: Anemia - TREATED WITH IRON PILLS Denies: Sickle Cell Disease Past Surgical History Past Surgical History: Reports: Hysterectomy Denies: Amputation, Mastectomy, Pacemaker Social History Smoking Status: Current Every Day Smoker - Advance Directive Resuscitation Status: Full Code Family History Parental Family History Reviewed: Yes Children Family History Reviewed: Yes Sibling(s) Family History Reviewed.: Yes Medication/Allergy Home Medications: Simvastatin 40 mg PO QHS 12/28/12 Colchicine [Colcrys 0.6 mg Tablet] 0.6 mg PO DAILY 01/16/18 Fenofibrate 160 mg PO DAILY 01/16/18 Furosemide 20 mg PO DAILY 01/16/18 Pantoprazole Sodium [Protonix] 40 mg PO DAILY 01/16/18 Sertraline HCl [Zoloft] 100 mg PO DAILY 01/16/18 Rivaroxaban [Xarelto 15 mg Tablet] 15 mg PO BID 09/27/19 Valsartan 160 mg PO DAILY 09/27/19 Vits A,C,E/Lutein/Minerals [Vision Formula with Lutein Tab] 1 each PO DAILY 09/27/19 Lisinopril [Zestril] 40 mg PO DAILY 10/12/19 Lorazepam 0.5 mg PO TIDP PRN 10/12/19 Oxycodone HCl [Oxy-Ir 5 mg Tablet] 5 mg PO Q6HP PRN 10/12/19 Allergies/Adverse Reactions: No Known Allergies Allergy (Verified 11/11/16 11:09) Review of Systems Constitutional: ABSENT: chills, fever(s), headache(s), weight gain, weight loss Eyes: ABSENT: visual disturbances Ears: ABSENT: hearing changes Cardiovascular: ABSENT: chest pain, dyspnea on exertion, edema, orthropnea, palpitations Respiratory: ABSENT: cough, hemoptysis Gastrointestinal: ABSENT: abdominal pain, constipation, diarrhea, hematemesis, hematochezia, nausea, vomiting Genitourinary: ABSENT: dysuria, hematuria Musculoskeletal: ABSENT: joint swelling Integumentary: ABSENT: rash, wounds Neurological: ABSENT: abnormal gait, abnormal speech, confusion, dizziness, focal weakness, syncope Psychiatric: ABSENT: anxiety, depression, homidical ideation, suicidal ideation Endocrine: ABSENT: cold intolerance, heat intolerance, polydipsia, polyuria Hematologic/Lymphatic: ABSENT: easy bleeding, easy bruising Physical Exam Vital Signs: Temp Pulse Resp BP Pulse Ox 97.3 F 90 18 121/69 92 10/13/19 07:20 10/13/19 07:20 10/13/19 07:20 10/13/19 07:20 10/13/19 07:20 Intake & Output 10/12/19 10/13/19 10/14/19 06:59 06:59 06:59 Intake Total 1750 Output Total 25 Balance 1725 Weight 53.07 kg General appearance: PRESENT: no acute distress, well-developed, well-nourished Head exam: PRESENT: atraumatic, normocephalic Eye exam: PRESENT: conjunctiva pink, EOMI, PERRLA. ABSENT: scleral icterus Ear exam: PRESENT: normal external ear exam Mouth exam: PRESENT: moist, tongue midline Neck exam: ABSENT: carotid bruit, JVD, lymphadenopathy, thyromegaly Respiratory exam: PRESENT: clear to auscultation don. ABSENT: rales, rhonchi, wheezes Cardiovascular exam: PRESENT: RRR. ABSENT: diastolic murmur, rubs, systolic murmur Pulses: PRESENT: normal dorsalis pedis pul Vascular exam: PRESENT: normal capillary refill GI/Abdominal exam: PRESENT: normal bowel sounds, soft. ABSENT: distended, guard ing, mass, organolmegaly, rebound, tenderness Rectal exam: PRESENT: deferred Extremities exam: PRESENT: full ROM. ABSENT: calf tenderness, clubbing, pedal edema Neurological exam: PRESENT: alert, awake, oriented to person, oriented to place, oriented to time, oriented to situation, CN II-XII grossly intact. ABSENT: motor sensory deficit Psychiatric exam: PRESENT: appropriate affect, normal mood. ABSENT: homicidal ideation, suicidal ideation Skin exam: PRESENT: dry, intact, warm. ABSENT: cyanosis, rash Results Laboratory Results: 10/12/19 14:13 10/13/19 06:18 10/12/19 10/12/19 10/12/19 11:10 14:13 14:13 WBC 7.3 7.2 RBC 3.48 L 3.52 L Hgb 10.7 L 10.7 L Hct 31.0 L 31.3 L MCV 89 89 MCH 30.6 30.4 MCHC 34.4 34.3 RDW 15.7 H 15.7 H Plt Count 326 334 Seg Neutrophils % 79.6 H 82.4 H Sodium 134.7 L Potassium 3.8 Chloride 102 Carbon Dioxide 27 Anion Gap 6 BUN 23 H Creatinine 1.20 Est GFR ( Amer) 54 L Glucose 90 Calcium 8.9 Magnesium Total Bilirubin 0.7 AST 22 Alkaline Phosphatase 78 Total Protein 5.6 L Albumin 2.8 L TSH Free T4 Free T3 pg/mL 10/12/19 10/12/19 10/12/19 14:13 14:13 19:48 WBC RBC Hgb Hct MCV MCH MCHC RDW Plt Count Seg Neutrophils % Sodium Potassium Chloride Carbon Dioxide Anion Gap BUN Creatinine Est GFR ( Amer) Glucose Calcium Magnesium 1.2 L* 2.0 Total Bilirubin AST Alkaline Phosphatase Total Protein Albumin TSH 18.30 H Free T4 Free T3 pg/mL 10/13/19 10/13/19 10/13/19 06:18 06:18 06:18 WBC RBC Hgb Hct MCV MCH MCHC RDW Plt Count Seg Neutrophils % Sodium 134.2 L Potassium 4.1 Chloride 104 Carbon Dioxide 22 Anion Gap 8 BUN 21 H Creatinine 1.00 Est GFR ( Amer) > 60 Glucose 68 L Calcium 9.2 Magnesium Total Bilirubin AST Alkaline Phosphatase Total Protein Albumin TSH Free T4 0.97 Free T3 pg/mL 4.21 Cancelled Impressions: Chest X-Ray 10/12/19 13:18 IMPRESSION: Status post placement of a left IJ approach single-lumen port. The tip of the catheter projects within the left brachiocephalic vein. There is no postprocedural pneumothorax. Assessment & Plan - Diagnosis (1) Cancer of right lung Qualifiers: Lung location: upper lobe of lung Qualified Code(s): C34.11 - Malignant neoplasm of upper lobe, right bronchus or lung Is this a current diagnosis for this admission?: Yes Plan: Stage IV lung cancer, had long discussion with patient about whether she wants to pursue therapy still for tissue" which more of a comfort care approach and patient still wants to pursue active therapy, discussed with hospitalist team to see if there is anything else to adjust for her, we would like to initiate jf motherapy in the next 3 to 5 days, as outpatient. Will follow.
[2019-10-13] MEDS: DOCUSATE SODIUM 100 MG/10 ML UDC PO SCH (09:23)
[2019-10-13] MEDS: VALSARTAN 160 MG TABLET PO SCH (09:23)
[2019-10-13] MEDS: FAMOTIDINE 20 MG TABLET PO SCH ×2 (09:24→22:23)
[2019-10-13] MEDS: RIVAROXABAN 15 MG TABLET PO SCH ×2 (09:24→18:16)
[2019-10-13] MEDS: METOPROLOL SUCCINATE 25 MG TAB.SR.24H PO SCH ×2 (09:24→22:23)
[2019-10-13] MEDS: SERTRALINE HCL 50 MG TABLET PO SCH (09:24)
[2019-10-13] MEDS: NORMAL SALINE 1000 ML 1,000 ML IV PRN (09:36)
[2019-10-13] MEDS ORDERED: VITS A C E PO SCH (10:00)
[2019-10-13] MEDS ORDERED: MINERALS PO SCH (10:00)
[2019-10-13] MEDS ORDERED: LUTEIN PO SCH (10:00)
[2019-10-13] MEDS ORDERED: [UNRECOGNIZED DRUG - OTHER] PO SCH (10:00)
[2019-10-13] MEDS: LEVALBUTEROL HCL NEB 1.25 MG/3 ML AMPUL NEB PRN ×3 (10:15→21:21)
--- NOTE | 2019-10-13 15:54 | PDOC PROGRESS REPORT ---
Subjective Progress Note for:: 10/13/19 Reason For Visit: SQUAMOUS CELL CARCINOMA,HYPOTENSION,ATRIAL 10/13/2019 Patient was admitted for further observation of her new onset atrial fib, possibly secondary to hypo-magnesium, and or hypothyroidism Physical Exam Vital Signs: Temp Pulse Resp BP Pulse Ox 97.3 F 92 19 90/64 L 99 10/13/19 11:39 10/13/19 14:00 10/13/19 11:39 10/13/19 11:39 10/13/19 11:39 Intake & Output 10/12/19 10/13/19 10/14/19 06:59 06:59 06:59 Intake Total 1750 260 Output Total 25 Balance 1725 260 Weight 54.5 kg General appearance: PRESENT: no acute distress Respiratory exam: PRESENT: clear to auscultation don. ABSENT: rales, rhonchi, wheezes Cardiovascular exam: PRESENT: RRR. ABSENT: diastolic murmur, rubs, systolic murmur Neurological exam: PRESENT: alert, awake, oriented to person, oriented to place, oriented to time, oriented to situation, CN II-XII grossly intact. ABSENT: m otor sensory deficit Psychiatric exam: PRESENT: flat affect Results Laboratory Results: 10/12/19 14:13 10/13/19 06:18 10/12/19 10/13/19 10/13/19 19:48 06:18 06:18 Sodium 134.2 L Potassium 4.1 Chloride 104 Carbon Dioxide 22 Anion Gap 8 BUN 21 H Creatinine 1.00 Est GFR ( Amer) > 60 Glucose 68 L Calcium 9.2 Magnesium 2.0 Free T4 0.97 Free T3 pg/mL 4.21 10/13/19 06:18 Sodium Potassium Chloride Carbon Dioxide Anion Gap BUN Creatinine Est GFR ( Amer) Glucose Calcium Magnesium Free T4 Free T3 pg/mL Cancelled Impressions: Chest X-Ray 10/12/19 13:18 IMPRESSION: Status post placement of a left IJ approach single-lumen port. The tip of the catheter projects within the left brachiocephalic vein. There is no postprocedural pneumothorax. Assessment and Plan - Diagnosis (1) Atrial fib/flutter, transient Is this a current diagnosis for this admission?: Yes (2) Hypothyroidism Is this a current diagnosis for this admission?: Yes (3) Non-small cell lung cancer Is this a current diagnosis for this admission?: Yes (4) Hypomagnesemia Is this a current diagnosis for this admission?: Yes (5) Hypotension Is this a current diagnosis for this admission?: Yes - Plan Summary Summary: 10/13/2019 Oncology, Dr. Stewart, and I have spoken about the patient today. Due to patient's frailty as well as abnormal labs she will be kept in the hospital another night for treatment and observation. Patient is agreeable to this Temperature 97.3 pulse 90 blood pressure 121/69 O2 sat between 9498% on room air. Patient has had no further runs of atrial fibrillation Patient has normal saline running at 60 mL's per hour Patient is on Toprol 25 mg every 12 hours, well as Xarelto 15 mg twice daily Plan to discharge patient tomorrow morning if stable on new dose of Synthroid 50 mcq with follow-up by oncology - Time Time Spent with patient: 25-34 minutes
[2019-10-13] MEDS ORDERED: NORMAL SALINE 500 ML IV ONE (17:00)
[2019-10-13 19:30] LABS: ANION GAP 9 (5-19); BLOOD UREA NITROGEN 22 mg/dL (7-20); CARBON DIOXIDE 23 mmol/L (22-30); CHLORIDE 101 mmol/L (98-107); GLUCOSE 164 mg/dL (75-110); POTASSIUM 3.9 mmol/L (3.6-5.0)
[2019-10-13] MEDS: SIMVASTATIN 40 MG TABLET PO SCH (22:23)
[2019-10-14] MEDS: NORMAL SALINE 1000 ML 1,000 ML IV PRN (00:50)
[2019-10-14] MEDS ORDERED: RINGERS SOLUTION,LACTATED 1,000 ML IV ONE (01:00)
[2019-10-14] MEDS ORDERED: NORMAL SALINE 1000 ML 1,000 ML IV PRN (04:30)
[2019-10-14 06:55] LABS: ABSOLUTE EOSINOPHILS # (AUTO) 0.1 10^3/uL (0.0-0.6); ABSOLUTE LYMPHOCYTES (AUTO) 0.6 10^3/uL (0.5-4.7); ABSOLUTE MONOCYTES (AUTO) 0.4 10^3/uL (0.1-1.4); ABSOLUTE NEUT (AUTO) 6.4 10^3/uL (1.7-8.2); BASOPHILS % (AUTO) 0.6 % (0-2); EOSINOPHILS % (AUTO) 0.8 % (0-6); HEMATOCRIT 29.6 % (36.0-47.0); LYMPHOCYTES % (AUTO) 8.4 % (13-45); MEAN CORPUSCULAR HEMOGLOBIN 30.4 pg (27.0-33.4); MEAN CORPUSCULAR HGB CONC 33.8 g/dL (32.0-36.0); MEAN CORPUSCULAR VOLUME 90 fl (80-97); MONOCYTES % (AUTO) 5.6 % (3-13); PLATELET COUNT 296 10^3/uL (150-450); RED BLOOD COUNT 3.29 10^6/uL (3.72-5.28); RED CELL DISTRIBUTION WIDTH 16.1 % (11.5-14.0); SEGMENTED NEUTROPHILS % (AUTO) 84.6 % (42-78); TOTAL CELLS COUNTED % (AUTO) 100 %; WHITE BLOOD COUNT 7.6 10^3/uL (4.0-10.5)
--- NOTE | 2019-10-14 08:16 | PDOC PROGRESS REPORT ---
Subjective Progress Note for:: 10/14/19 Subjective:: Patient sleeping, but easily arousable. She denies any complaints today. She states that she was able to walk to the bathroom without difficulty and she is eating and drinking well. Nurses report that she has been in and out of A-fib, but is asymptomatic during these episodes. Her BPs have been very low. Reason For Visit: SQUAMOUS CELL CARCINOMA,HYPOTENSION,ATRIAL Physical Exam Vital Signs: Temp Pulse Resp BP Pulse Ox 97.3 F 87 20 99/59 L 100 10/14/19 03:33 10/14/19 07:00 10/14/19 03:44 10/14/19 03:44 10/14/19 03:44 Intake & Output 10/13/19 10/14/19 10/15/19 06:59 06:59 06:59 Intake Total 1750 3395 Output Total 25 0 Balance 1725 3395 Weight 54.5 kg 60.9 kg General appearance: PRESENT: no acute distress, well-developed, well-nourished Head exam: PRESENT: normocephalic Respiratory exam: PRESENT: unlabored Neurological exam: PRESENT: alert, awake Psychiatric exam: PRESENT: appropriate affect Skin exam: PRESENT: normal color Results Laboratory Results: 10/14/19 06:16 10/13/19 18:25 10/13/19 10/14/19 18:25 06:16 WBC 7.6 RBC 3.29 L Hgb 10.0 L Hct 29.6 L MCV 90 MCH 30.4 MCHC 33.8 RDW 16.1 H Plt Count 296 Seg Neutrophils % 84.6 H Sodium 132.5 L Potassium 3.9 Chloride 101 Carbon Dioxide 23 Anion Gap 9 BUN 22 H Creatinine 1.20 Est GFR ( Amer) 54 L Glucose 164 H Calcium 9.0 Magnesium 1.8 Impressions: Chest X-Ray 10/12/19 13:18 IMPRESSION: Status post placement of a left IJ approach single-lumen port. The tip of the catheter projects within the left brachiocephalic vein. There is no postprocedural pneumothorax. Status: Image reviewed by me Assessment & Plan - Diagnosis (1) Atrial fib/flutter, transient Is this a current diagnosis for this admission?: Yes Plan: Per primary team. She is on Xarelto. Currently, heart rate is 87. (2) Cancer of right lung Qualifiers: Lung location: upper lobe of lung Qualified Code(s): C34.11 - Malignant neoplasm of upper lobe, right bronchus or lung Is this a current diagnosis for this admission?: Yes Plan: Recent placement of port. According to CXR, this does not appear to be in the area of the atrium, so I don't think this is contributing to the A-fib. Plan to start chemo once discharged. (3) Hypotension Is this a current diagnosis for this admission?: Yes (4) Hypothyroidism Is this a current diagnosis for this admission?: Yes Plan: May be contributing to the A-fib. She has not yet been started on anything for this. I will defer to primary team. - Time Time Spent with patient: Less than 15 minutes
--- NOTE | 2019-10-14 08:22 | RADIOLOGY REPORT (SQ) ---
EXAM DESCRIPTION: FLUORO/CV PLACEMENT IMAGES COMPLETED DATE/TIME: 10/12/2019 2:57 pm REASON FOR STUDY: PORTACATH PLCMT LEFT SIDE ASST WITH FLUORO IN OR C34.2 MALIGNANT NEOPLASM OF MIDD LE LOBE, BRONCHUS OR LUNG Z79.899 OTHER SCHOOL SPEECH THERAPIST (CURRENT) DRUG THERAPY COMPARISON: None. FLUOROSCOPY TIME: 2.1 minutes. 5 images saved to PACS. TECHNIQUE: Intra-operative images acquired during surgical procedure to evaluate progress. NUMBER OF IMAGES: 5 images. LIMITATIONS: None. FINDINGS: Images acquired during port placement. IMPRESSION: IMAGE(S) OBTAINED DURING PROCEDURE. COMMENT: Quality ID [id number]: Final reports for procedures using fluoroscopy that document radiation exp osure indices, or exposure time and number of fluorographic images (if radiation exposure indices are not available) Please consult full operative report of the attending physician for description of the procedure. TECHNICAL DOCUMENTATION: JOB ID: [id number] [email or web address] All Rights Reserved Reading location - IP/workstation name: [email or web address]
[2019-10-14] MEDS: FAMOTIDINE 20 MG TABLET PO SCH (10:59)
[2019-10-14] MEDS: RIVAROXABAN 15 MG TABLET PO SCH (10:59)
[2019-10-14] MEDS: SERTRALINE HCL 50 MG TABLET PO SCH (10:59)
[2019-10-14] MEDS: DOCUSATE SODIUM 100 MG/10 ML UDC PO SCH (11:00)
[2019-10-14] MEDS: INSULIN LISPRO 100 UNIT/ML 3 ML VIAL SUBCUT SCH ×2 (11:01→12:10)
[2019-10-14] MEDS: VALSARTAN 160 MG TABLET PO SCH (11:02)
[2019-10-14] MEDS: METOPROLOL SUCCINATE 25 MG TAB.SR.24H PO SCH (11:05)
[2019-10-14 13:29] VITALS: BP 101/66
--- NOTE | 2019-10-14 17:03 | PDOC DISCHARGE SUMMARY ---
Impression - Admit/DC Date/PCP Admission Date/Primary Care Provider: 10/13/19 11:24 JOSE ALBERTO APPLE PA-C Discharge Date: 10/14/19 - Discharge Diagnosis (1) Atrial fib/flutter, transient Is this a current diagnosis for this admission?: Yes (2) Hypothyroidism Is this a current diagnosis for this admission?: Yes (3) Non-small cell lung cancer Is this a current diagnosis for this admission?: Yes (4) Hypomagnesemia Is this a current diagnosis for this admission?: Yes (5) Hypotension Is this a current diagnosis for this admission?: Yes - Assessment Summary: 10/13/2019 Oncology, Dr. Stewart, and I have spoken about the patient today. Due to patient's frailty as well as abnormal labs she will be kept in the hospital another night for treatment and observation. Patient is agreeable to this Temperature 97.3 pulse 90 blood pressure 121/69 O2 sat between 9498% on room air. Patient has had no further runs of atrial fibrillation Patient has normal saline running at 60 mL's per hour Patient is on Toprol 25 mg every 12 hours, well as Xarelto 15 mg twice daily Plan to discharge patient tomorrow morning if stable on new dose of Synthroid 50 mcq with follow-up by oncology History and physical is located under 10/14/2019 Patient discharged home today to the care of her family Atrial fibrillation new onset, non-small cell cancer, hypothyroidism new onset, hypo-magnesium Discharged home on a low dose of Synthroid 0.05 g, Toprol XL 25 mg 1 twice daily Hold the Prinivil and decrease Diovan to 80 mg daily Also be seen by oncology next week Vital signs at the time of discharge temperature 97.3 pulse 88 and regular blood pressure 101/66 O2 sat 94% on room air - Additional Information Resuscitation Status: Full Code Discharge Diet: As Tolerated, Diabetic Discharge Activity: Activity As Tolerated, Bedrest, Energy Conservation Referrals: JOSE ALBERTO APPLE PA-C [Primary Care Provider] - 10/18/19 10:45 am DARLINE STEWART MD [ACTIVE STAFF] - 10/21/19 2:45 pm () DEEP PENA MD [ACTIVE STAFF] - 10/25/19 11:45 am Prescriptions: Valsartan [Diovan 80 mg Tablet] 80 mg PO DAILY 30 Days #30 tablet Levothyroxine Sodium [Synthroid 0.05 mg Tablet] 0.05 mg PO DAILY 30 Days #30 tablet Metoprolol Succinate [Toprol Xl 25 mg Tab.sr] 25 mg PO Q12 30 Days #60 tab.sr.24h Home Medications: Simvastatin 40 mg PO QHS 12/28/12 Colchicine [Colcrys 0.6 mg Tablet] 0.6 mg PO DAILY 01/16/18 Fenofibrate 160 mg PO DAILY 01/16/18 Furosemide 20 mg PO DAILY 01/16/18 Pantoprazole Sodium [Protonix] 40 mg PO DAILY 01/16/18 Sertraline HCl [Zoloft] 100 mg PO DAILY 01/16/18 Rivaroxaban [Xarelto 15 mg Tablet] 15 mg PO BID 09/27/19 Vits A,C,E/Lutein/Minerals [Vision Formula with Lutein Tab] 1 each PO DAILY 09/27/19 Lorazepam 0.5 mg PO TIDP PRN 10/12/19 Oxycodone HCl [Oxy-Ir 5 mg Tablet] 5 mg PO Q6HP PRN 10/12/19 Acetaminophen [Tylenol 325 mg Tablet] 650 mg PO Q4HP PRN tablet 10/14/19 Docusate Sodium [Colace Udc 100 mg/10 ml Oral Soln] 100 mg PO DAILY udc 10/14/19 Levothyroxine Sodium [Synthroid 0.05 mg Tablet] 0.05 mg PO DAILY 30 Days #30 tablet 10/14/19 Mag Hydrox/Al Hydrox/Simeth [Maalox Plus Susp 30 Udcup] 30 ml PO Q6HP PRN udc 10/14/19 Metoprolol Succinate [Toprol Xl 25 mg Tab.sr] 25 mg PO Q12 30 Days #60 tab.sr.24h 10/14/19 Valsartan [Diovan 80 mg Tablet] 80 mg PO DAILY 30 Days #30 tablet 10/14/19 History of Present Illiness History of Present Illness: PABLO QUINONES is a 68 year old female Physical Exam Vital Signs: Temp Pulse Resp BP Pulse Ox 97.3 F 88 16 107/68 94 10/14/19 12:49 10/14/19 12:49 10/14/19 12:49 10/14/19 12:49 10/14/19 12:49 Intake & Output 10/13/19 10/14/19 10/15/19 06:59 06:59 06:59 Intake Total 1750 3395 Output Total 25 0 Balance 1725 3395 Weight 54.5 kg 60.9 kg Results Laboratory Results: WBC 7.6 10^3/uL (4.0-10.5) 10/14/19 06:16 RBC 3.29 10^6/uL (3.72-5.28) L 10/14/19 06:16 Hgb 10.0 g/dL (12.0-15.5) L 10/14/19 06:16 Hct 29.6 % (36.0-47.0) L 10/14/19 06:16 MCV 90 fl (80-97) 10/14/19 06:16 MCH 30.4 pg (27.0-33.4) 10/14/19 06:16 MCHC 33.8 g/dL (32.0-36.0) 10/14/19 06:16 RDW 16.1 % (11.5-14.0) H 10/14/19 06:16 Plt Count 296 10^3/uL (150-450) 10/14/19 06:16 Lymph % (Auto) 8.4 % (13-45) L 10/14/19 06:16 [place] % (Auto) 5.6 % (3-13) 10/14/19 06:16 Eos % (Auto) 0.8 % (0-6) 10/14/19 06:16 Baso % (Auto) 0.6 % (0-2) 10/14/19 06:16 Absolute Neuts (auto) 6.4 10^3/uL (1.7-8.2) 10/14/19 06:16 Absolute Lymphs (auto) 0.6 10^3/uL (0.5-4.7) 10/14/19 06:16 Absolute Monos (auto) 0.4 10^3/uL (0.1-1.4) 10/14/19 06:16 Absolute Eos (auto) 0.1 10^3/uL (0.0-0.6) 10/14/19 06:16 Absolute Basos (auto) 0.0 10^3/uL (0.0-0.2) 10/14/19 06:16 Seg Neutrophils % 84.6 % (42-78) H 10/14/19 06:16 Sodium 132.5 mmol/L (137-145) L 10/13/19 18:25 Potassium 3.9 mmol/L (3.6-5.0) 10/13/19 18:25 Chloride 101 mmol/L (98-107) 10/13/19 18:25 Carbon Dioxide 23 mmol/L (22-30) 10/13/19 18:25 Anion Gap 9 (5-19) 10/13/19 18:25 BUN 22 mg/dL (7-20) H 10/13/19 18:25 Creatinine 1.20 mg/dL (0.52-1.25) 10/13/19 18:25 Est GFR ( Amer) 54 (>60) L 10/13/19 18:25 Est GFR (MDRD) Non-Af 45 (>60) L 10/13/19 18:25 Glucose 164 mg/dL (75-110) H 10/13/19 18:25 POC Glucose 123 mg/dL (70-110) H 10/14/19 12:00 Calcium 9.0 mg/dL (8.4-10.2) 10/13/19 18:25 Magnesium 1.8 mg/dL (1.6-2.3) 10/13/19 18:25 Total Bilirubin 0.7 mg/dL (0.2-1.3) 10/12/19 14:13 Direct Bilirubin 0.4 mg/dL (0.0-0.4) 10/12/19 14:13 Neonat Total Bilirubin Not Reportable 10/12/19 14:13 Neonat Direct Bilirubin Not Reportable 10/12/19 14:13 Neonat Indirect Bili Not Reportable 10/12/19 14:13 AST 22 U/L (14-36) 10/12/19 14:13 ALT 10 U/L (<35) 10/12/19 14:13 Alkaline Phosphatase 78 U/L (38-126) 10/12/19 14:13 Total Protein 5.6 g/dL (6.3-8.2) L 10/12/19 14:13 Albumin 2.8 g/dL (3.5-5.0) L 10/12/19 14:13 TSH 18.30 uIU/mL (0.47-4.68) H 10/12/19 14:13 Free T4 0.97 ng/dL (0.78-2.19) 10/13/19 06:18 Free T3 pg/mL 4.21 pg/mL (2.77-5.27) 10/13/19 06:18 Free T3 pg/mL Cancelled 10/13/19 06:18 Impressions: Guidance Fluoroscopy 10/12/19 00:00 IMPRESSION: IMAGE(S) OBTAINED DURING PROCEDURE. Chest X-Ray 10/12/19 13:18 IMPRESSION: Status post placement of a left IJ approach single-lumen port. The tip of the catheter projects within the left brachiocephalic vein. There is no postprocedural pneumothorax. Stroke Is this a Stroke Patient?: No Acute Heart Failure - Is this a Heart Failure Patient?: No
== END 2019-10-14 13:35 | disposition home or self-care (01) ==
LOC: OROUT 07:03 → 3S 07:03 → OROUT 18:56 → 3S 10-13 11:24
PROVIDERS: ADMIT Surgery; ATTEND Surgery
DX: I82.C11 Acute embolism and thrombosis of right internal jugular vein (principal); I82.210 Acute embolism and thrombosis of superior vena cava; C34.11 Malignant neoplasm of upper lobe, right bronchus or lung; C79.51 Secondary malignant neoplasm of bone; C77.3 Secondary and unspecified malignant neoplasm of axilla and upper limb lymph nodes; I48.91 Unspecified atrial fibrillation; I48.92 Unspecified atrial flutter; E03.9 Hypothyroidism, unspecified; E83.42 Hypomagnesemia; I95.9 Hypotension, unspecified; R54 Age-related physical debility; I10 Essential (primary) hypertension; D50.9 Iron deficiency anemia, unspecified; J44.9 Chronic obstructive pulmonary disease, unspecified; M19.90 Unspecified osteoarthritis, unspecified site; F17.200 Nicotine dependence, unspecified, uncomplicated; G89.3 Neoplasm related pain (acute) (chronic); C78.1 Secondary malignant neoplasm of mediastinum; E11.9 Type 2 diabetes mellitus without complications; Z79.899 Other long term (current) drug therapy; Z90.49 Acquired absence of other specified parts of digestive tract; Z86.711 Personal history of pulmonary embolism
CPT/HCPCS: 36561; 36415 ×3; 84439; 82962 ×3; 83735 ×2; 84443; 85025 ×2; 80048; 80053; 84481; 70553; 71045; 77001; 93005; 93010; 94640 ×2; 97530; 97162; 00532; G0379; G0378 ×2; C1752; A9576; C1788; C1769; J2250; J0690; A9270 ×16; J3490 ×4; J3475; J7030 ×2; J7040; J7120 ×2; J1642; J1815; J2405; J2704; J3010

== ENCOUNTER → 2019-10-12 | Outpatient (CLI) | payer MEDICARE, MEDICAID ==
[~2019-10-12] MED LIST changes: +MAGNESIUM SULFATE/D5W 1 GM/100 ML RTUPB IV SCH; -PROPOFOL INJ 200 MG/20 ML VIAL IV ONE
--- NOTE | 2019-10-12 15:24 | PDOC H&P ---
History of Present Illness Admission Date/PCP: DARLINE SOLIZ MD History of Present Illness: PABLO QUINONES is a 68 year old female who was seen in the PACU following port placement by general surgery for metastatic squamous cell carcinoma. Following the procedure patient went into a type of tachycardia which appeared to be possibly atrial fib versus SVT. Patient was given esmolol and converted back to a sinus rhythm with a rate in the low 100s. Patient also at that time had a blood pressure approximately 90/60 and hospitalist were consulted medical management.. When I saw the patient in the recovery room her blood pressure was 105/60 with a heart rate of 96. Patient was lethargic but easily arousable and answers all my questions appropriately. General surgery, Dr. Godoy, both to a friend who was listed on the chart as "Monisha". He appraised her of the situation and she was going to get in touch with the family, concerning need to be put in the hospital overnight for observation.. He also relayed to them the severity and seriousness of patient's medical problems. Patient told me that she did not want to be intubated she did to be a DNR. Patient stated that her family was aware of her wishes. According to the chart and with limited information patient appears to have malignant neoplasm of the lung with possible metastatic disease to the brain. According to the medications listed in the chart that the patient is on she also has hyperlipidemia, hypertension, diabetes. Past Medical History Cardiac Medical History: Reports: Hypertension - medication Denies: Coronary Artery Disease, Myocardial Infarction Pulmonary Medical History: Denies: Asthma, Bronchitis, Chronic Obstructive Pulmonary Disease (COPD), Pneumonia Neurological Medical History: Denies: Seizures GI Medical History: Denies: Hepatitis, Hiatal Hernia Musculoskeltal Medical History: Reports: Arthritis Hematology: Denies: Anemia, Sickle Cell Disease Past Surgical History Past Surgical History: Reports: Hysterectomy Denies: Amputation, Mastectomy, Pacemaker Social History Smoking Status: Unknown if Ever Smoked - Advance Directive Resuscitation Status: Do Not Resuscitate Family History Parental Family History Reviewed: No Children Family History Reviewed: No Sibling(s) Family History Reviewed.: No Medication/Allergy Home Medications: Simvastatin 40 mg PO QHS 12/28/12 Colchicine [Colcrys 0.6 mg Tablet] 0.6 mg PO DAILY 01/16/18 Fenofibrate 160 mg PO DAILY 01/16/18 Furosemide 20 mg PO DAILY 01/16/18 Metformin HCl [Glucophage 500 mg Tablet] 500 mg PO BID 01/16/18 Pantoprazole Sodium [Protonix] 40 mg PO DAILY 01/16/18 Sertraline HCl [Zoloft] 100 mg PO DAILY 01/16/18 Rivaroxaban [Xarelto 15 mg Tablet] 15 mg PO BID 09/27/19 Valsartan 160 mg PO DAILY 09/27/19 Vits A,C,E/Lutein/Minerals [Vision Formula with Lutein Tab] 1 each PO DAILY 09/27/19 Allergies/Adverse Reactions: No Known Allergies Allergy (Verified 11/11/16 11:09) Review of Systems ROS unobtainable: Due to mental status Physical Exam General appearance: PRESENT: no acute distress Respiratory exam: PRESENT: clear to auscultation don. ABSENT: rales, rhonchi, wheezes Cardiovascular exam: PRESENT: RRR. ABSENT: diastolic murmur, rubs, systolic murmur Neurological exam: PRESENT: alert, awake, oriented to person, oriented to place, oriented to time, oriented to situation, CN II-XII grossly intact, other - Patient is lethargic secondary to anesthesia but arouses easily carries on norm al conversation and appears competent. ABSENT: motor sensory deficit Psychiatric exam: PRESENT: appropriate affect, normal mood. ABSENT: homicidal ideation, suicidal ideation Results Impressions: Head MRI 10/12/19 07:49 IMPRESSION: 16 mm left temporal calvarial metastatic lesion. No brain parenchymal enhancing lesions worrisome for metastatic disease EVIDENCE OF ACUTE STROKE: NO. Assessment and Plan - Diagnosis (1) Diabetes Is this a current diagnosis for this admission?: Yes (2) Hyperlipidemia Is this a current diagnosis for this admission?: Yes (3) Lung cancer metastatic to brain Is this a current diagnosis for this admission?: Yes (4) Hypertension Is this a current diagnosis for this admission?: Yes - Plan Summary Summary: Patient was seen in PACU following port placement left anterior chest wall. Patient developed a tachycardia, hypotensive episode while in surgery and recovery and we were consulted for medical management. I saw the patient she had already had 1 dose of beta-gabriela IV and her heart rate was 96 and appeared to be in sinus and blood pressure was 105/60. His labs will be checked and patient will be observed overnight for any further arrhythmias. With nurse, Judy, at the bedside patient voiced her preference for being a DNR - Time Time Spent with patient: 35 or more minutes
== END ==
LOC: RAD 07:45
PROVIDERS: ATTEND Internal Medicine
DX: C34.2 Malignant neoplasm of middle lobe, bronchus or lung (principal)
CPT/HCPCS: 70553; 82565; A9576

== ENCOUNTER 2019-10-18 13:30 | Emergency (ER) | payer MEDICARE, MEDICAID ==
--- NOTE | 2019-10-18 13:45 | ER Document Report ---
ED General - General Stated Complaint: BLOOD PRESSURE ISSUES Time Seen by Provider: 10/18/19 13:36 Primary Care Provider: DARLINE SOLIZ MD [Primary Care Provider] - Follow up as needed Notes: 68-year-old lady presents with lethargy hypotension brought from clinic. Recent diagnosis lung cancer Port-A-Cath placement patient Dr. Louis. She says she feels weak but has no other symptoms. Per EMS was hypotensive requiring fluids, and on Levophed drip. Could not get a temperature but heart rate was elevated. No known history of A. fib. Code per patient. Ending chemo. TRAVEL OUTSIDE OF THE [place] IN LAST 30 DAYS: No - Related Data Allergies/Adverse Reactions: No Known Allergies Allergy (Verified 11/11/16 11:09) Past Medical History - General Information source: Patient Cannot obtain history due to: Unstable vital signs - Social History Smoking Status: Current Every Day Smoker Smoking Education Provided: Yes - The patient ED visit today was directly related to their abuse of tobacco. Family History: Other - Past Medical History Cardiac Medical History: Reports: Hx Hypertension - medication Denies: Hx Coronary Artery Disease, Hx Heart Attack Pulmonary Medical History: Denies: Hx Asthma, Hx Bronchitis, Hx COPD, Hx Pneumonia Neurological Medical History: Denies: Hx Cerebrovascular Accident, Hx Seizures Malignancy Medical History: Reports: Hx Lung Cancer GI Medical History: Denies: Hx Hepatitis, Hx Hiatal Hernia, Hx Ulcer Musculoskeletal Medical History: Reports Hx Arthritis Psychiatric Medical History: Denies: Hx Depression Infectious Medical History: Denies: Hx Hepatitis Past Surgical History: Reports: Hx Hysterectomy. Denies: Hx Mastectomy, Hx Open Heart Surgery, Hx Pacemaker - Immunizations Hx Diphtheria, Pertussis, Tetanus Vaccination: Yes Review of Systems - Review of Systems Notes: REVIEW OF SYSTEMS Mental status PHYSICAL EXAMINATION General: Thin stated age chronically ill-appearing d Head: Atraumatic, normocephalic ENT: Dry, no facial edema left greater than right Eyes: Conjunctiva normal, pupils equal, lids normal Neck: Jugular venous distention CVS: Tachycardic irregular Resp: No resp distress, equal and normal breath sounds bilaterally GI: Nondistended, soft, no tenderness to palpation, no rebound or guarding Ext: No deformities, no edema, normal range of motion in upper and lower ext Back: No CVA or midline TTP Skin: No rash, warm Lymphatic: No lymphadeopathy noted Neuro: Awake but sluggish to respond. 15. Physical Exam - Vital signs Vitals: Temp 97.8 F 10/18/19 13:31 Course - Re-evaluation Re-evalutation: 10/18/19 14:13 Critically ill patient presents with hypotension and malperfusion. She is not have a fever her port site looks good Differential includes dehydration sepsis pericardial effusion with tamponade massive PE and a host of other severe disorders including thyroid and metabolic Started fluid. Initially Levophed was off but had to turn it back on given hypotension. Positive JVD and borderline oxygen saturation. Confirmed again the patient wants everything done remains full code. Attempted contact family Ellen was unable to. EKG shows rapid atrial fibrillation. With ongoing hypotension, check ultrasound which shows large pericardial effusion with right ventricular indentation suggestive of cardiac tamponade Patient was discussed with cardiology, Dr. Hernández who agrees with fluids first rate control/rhythm control second, and pericardiocentesis as a last ditch effort and endorses transfer. Initiate transfer to [facility] cardiology at 2:05 PM. Pressure came up with Levophed. Chest x-ray pending labs pending. 10/18/19 15:53 Patient got more tachycardic on Levophed, so I could not turn it off she would get hypotensive and if I trended up her pressure stayed the same and her heart rate went above 200. We agreed to cardiovert I discussed her with Dr. Padron at [facility] who agrees with the plan of cardioversion and pericardiocentesis if absolutely necessary. He also mentioned reversing her anticoagulation with Kcentra. Dental think is necessary at this time given ongoing cardioverter especially is not thinking but had repair cardiocentesis. Patient was cardioverted after the third attempt resume sinus rhythm. Transient increase in blood pressure for about 30 minutes not requiring pressors, then dropped again so restarted Levophed. Putting off the need for pericardiocent esis for now. Discussed with Dr. Narvaez at [facility] ICU who is except the patient. Discussed with patient's sister at length. Helicopter arrived for patient. Reassessed at 3:30 PM as she was leaving. Stable for transfer. - Vital Signs Vital signs: Temp Pulse Resp BP Pulse Ox 97.8 F 97 10/18/19 13:31 10/18/19 13:37 - Laboratory Result Diagrams: 10/18/19 13:40 10/18/19 13:40 Laboratory results interpreted by me: 10/18/19 10/18/19 10/18/19 13:40 13:40 13:40 WBC 12.3 H Hgb 11.6 L Hct 34.8 L RDW 16.8 H Plt Count 481 H Lymph % (Auto) 5.6 L Absolute Neuts (auto) 10.9 H Seg Neutrophils % 88.8 H VBG HCO3 19.0 L Sodium 135.0 L Potassium 5.2 H Carbon Dioxide 20 L BUN 44 H Creatinine 2.22 H Est GFR ( Amer) 27 L Est GFR (MDRD) Non-Af 22 L Direct Bilirubin 0.7 H Total Protein 5.7 L Albumin 2.9 L TSH 10/18/19 13:40 WBC Hgb Hct RDW Plt Count Lymph % (Auto) Absolute Neuts (auto) Seg Neutrophils % VBG HCO3 Sodium Potassium Carbon Dioxide BUN Creatinine Est GFR ( Amer) Est GFR (MDRD) Non-Af Direct Bilirubin Total Protein Albumin TSH 24.80 H - Diagnostic Test Radiology reviewed: Image reviewed, Reports reviewed - EKG Interpretation by Me EKG shows normal: Sinus rhythm - EKG #3: Sinus rhythm 90 bpm normal T waves normal intervals changed from prior Rate: Tachycardia Rhythm: A.Fib When compared to previous EKG there are: Changes noted - EKG #1: A. fib rate [address] depression lateral leads. Change from prior. EKG #2: Procedures - Conscious Sedation Conscious sedation Consent obtained: No - Emergent implied Indication: Electrical cardioversion Last meal: unknownemergent procedure Pt with a mild systemic disease.: P2. - ASA Classification. Airway Evaluation: Normal anatomy, Neck immobility Mallampati Classification: Class 2 Used during procedure: Suction available, IV access obtained, Pulse ox on pt., school lunch monitor on pt. Medications administered: Ketamine - 50 mg IV I personally performed/intraservice time: Sedation, Procedure, 31-45 min Complications: No - Ultrasound/Bedside Ultrasound/Bedside Ultrasound: Other - Hyperdynamic heart with irregular contractions large pericardial effusion concentrated inferiorly via subcostal view, right ventricular indentation - Additional Procedures Cardioversion/Defib Additional Procedures: Cardioversion/defib - Synchronized cardioversion using 200 J. Attempt #1: Transient conversion to sinus then back to A. fib Attempt #2: Transient conversion to sinus then returned to A. fib 3.: Successful sustained sinus rhythm confirmed on EKG Critical Care Note - Critical Care Note Total time excluding time spent on procedures (mins): 72 Comments: The above patient is critically ill. Not including procedures, but including direct re-evaluations, speaking with patient and/or consultants, interpreting results, and documenting, I spent the total amount of minute listed listed above on critical care time Discharge - Discharge Clinical Impression: Pericardial effusion with cardiac tamponade Condition: Critical Disposition: [facility] Referrals: DARLINE SOLIZ MD [Primary Care Provider] - Follow up as needed
[2019-10-18] MEDS ORDERED: KETAMINE HCL INJ 500 MG/10 ML VIAL ONE (14:02)
[2019-10-18 14:04] LABS: ABSOLUTE BASOPHILS # (AUTO) 0.1 10^3/uL (0.0-0.2); ABSOLUTE LYMPHOCYTES (AUTO) 0.7 10^3/uL (0.5-4.7); ABSOLUTE MONOCYTES (AUTO) 0.6 10^3/uL (0.1-1.4); ABSOLUTE NEUT (AUTO) 10.9 10^3/uL (1.7-8.2); BASOPHILS % (AUTO) 0.8 % (0-2); HEMATOCRIT 34.8 % (36.0-47.0); HEMOGLOBIN 11.6 g/dL (12.0-15.5); LYMPHOCYTES % (AUTO) 5.6 % (13-45); MEAN CORPUSCULAR HEMOGLOBIN 30.3 pg (27.0-33.4); MEAN CORPUSCULAR HGB CONC 33.4 g/dL (32.0-36.0); MEAN CORPUSCULAR VOLUME 91 fl (80-97); MONOCYTES % (AUTO) 4.8 % (3-13); PLATELET COUNT 481 10^3/uL (150-450); RED BLOOD COUNT 3.84 10^6/uL (3.72-5.28); RED CELL DISTRIBUTION WIDTH 16.8 % (11.5-14.0); SEGMENTED NEUTROPHILS % (AUTO) 88.8 % (42-78); TOTAL CELLS COUNTED % (AUTO) 100 %; WHITE BLOOD COUNT 12.3 10^3/uL (4.0-10.5)
[2019-10-18 14:05] LABS: VENOUS BLOOD PCO2 39.7 mmHg (35-63); VENOUS BLOOD PH 7.3 (7.30-7.42)
[2019-10-18] MEDS ORDERED: ONDANSETRON HCL INJ/PF 4 MG/2 ML SDV ONE (14:07)
[2019-10-18 14:11] LABS: INTERNATIONAL RATION (INR) 1.14; PROTHROMBIN TIME 14.7 SEC (11.4-15.4)
[2019-10-18 14:26] LABS: ALBUMIN 2.9 g/dL (3.5-5.0); ALKALINE PHOSPHATASE 90 U/L (38-126); ANION GAP 10 (5-19); ASPARTATE AMINO TRANSFERASE 32 U/L (14-36); BILIRUBIN,DIRECT 0.7 mg/dL (0.0-0.4); BLOOD UREA NITROGEN 44 mg/dL (7-20); CALCIUM 9.9 mg/dL (8.4-10.2); CARBON DIOXIDE 20 mmol/L (22-30); CHLORIDE 105 mmol/L (98-107); GLUCOSE 106 mg/dL (75-110); POTASSIUM 5.2 mmol/L (3.6-5.0); TOTAL PROTEIN 5.7 g/dL (6.3-8.2)
[2019-10-18] MEDS ORDERED: CALCIUM GLUCONATE 1000 MG/10 ML INJ IV ONE (14:29)
[2019-10-18] MEDS ORDERED: SODIUM BICARBONATE 8.4% INJ 50 MEQ/50 ML DISP.SYRIN IV ONE (14:32)
--- NOTE | 2019-10-18 14:34 | RADIOLOGY REPORT (SQ) ---
EXAM DESCRIPTION: CHEST SINGLE VIEW IMAGES COMPLETED DATE/TIME: 10/18/2019 2:16 pm REASON FOR STUDY: hypotension COMPARISON: 10/12/2019 FINDINGS: One view chest AP portable upright. Significant abnormal opacity has developed throughout the lower half of the left lung. Includes pleu ral effusion with probable significant volume loss. No pneumothorax. Port remains in place. TECHNICAL DOCUMENTATION: JOB ID: [id number] Reading location - IP/workstation name: [email or web address]
[2019-10-18] MEDS ORDERED: FENTANYL CITRATE INJ/PF 100 MCG/2 ML AMPUL ONE (14:44)
[2019-10-18] MEDS ORDERED: FENTANYL CITRATE INJ/PF 100 MCG/2 ML AMPUL IV ONE (14:45)
[2019-10-18] MEDS ORDERED: KETAMINE HCL INJ 500 MG/10 ML VIAL IV ONE (15:51)
[2019-10-18 16:00] VITALS: BP 80/56
[2019-10-18] MEDS ORDERED: ONDANSETRON HCL INJ/PF 4 MG/2 ML SDV IV ONE (16:01)
[2019-10-18] MEDS ORDERED: DEXTROSE 5%-WATER 250 ML with NOREPINEPHRINE BITARTRATE 4 MG IV PRN ×2 (16:02)
--- NOTE | 2019-10-18 22:30 | EKG REPORT ---
SEVERITY:- ABNORMAL ECG - POSSIBLE SINUS RHYTM VS ATRIAL FIBRILLATION LOW VOLTAGE THROUGHOUT BORDERLINE T ABNORMALITIES, DIFFUSE LEADS : Confirmed by: Juan Dos Santos 18-Oct-2019 22:29:37
--- NOTE | 2019-10-18 22:31 | EKG REPORT ---
SEVERITY:- ABNORMAL ECG - SUPRAVENTRICULAR TACHYCARDIA VS AFIB WITH RVR LOW VOLTAGE THROUGHOUT MINIMAL ST DEPRESSION, INFERIOR LEADS BORDERLINE T ABNORMALITIES, DIFFUSE LEADS : Confirmed by: Juan Dos Santos 18-Oct-2019 22:30:18
== END 2019-10-18 15:32 | disposition short-term general hospital (02) ==
LOC: ER 13:30
DX: J90 Pleural effusion, not elsewhere classified (principal); I31.4 Cardiac tamponade; I10 Essential (primary) hypertension; F17.200 Nicotine dependence, unspecified, uncomplicated; Z90.710 Acquired absence of both cervix and uterus
CPT/HCPCS: 93005; 99291; 99152; 96375; 96365; 96366; 36415; 87040; 83605; 83735; 84443; 85025; 85610; 87077; 80053; 84484; 82803; 71045; 93010; 92960; J0610; J3010; J3490 ×3; J2405; J7060